=== PATIENT | female | born 1945 | race Caucasian/White ===

== ENCOUNTER 2018-07-24 10:19 | Outpatient (CLI) | payer MEDICARE, SELFPAY ==
[2018-07-24 11:35] LABS: Anion Gap 7.5 mmol/L (3-11); BUN 10 mg/dL (7-18); CO2 30.5 mmol/L (21.0-32.0); CREATININE 0.65 mg/dL (0.55-1.02); Calcium 9.4 mg/dL (8.5-10.1); Chloride 103 mmol/L (98-107); Glucose 94 mg/dL (70-100); Potassium 4.8 mmol/L (3.5-5.1); Sodium 141 mmol/L (136-145)
== END 2018-07-24 10:39 ==
PROVIDERS: PCP Family Medicine; Visit Provider Family Medicine
DX: E03.9 Hypothyroidism, unspecified (principal)
CPT/HCPCS: 36415; 80048; 84443

== ENCOUNTER 2018-08-15 01:25 | Outpatient (CLI) | payer MEDICARE, SELFPAY ==
--- NOTE | 2018-08-15 11:00 | DI.MAMMO_ITS ---
SYMPTOM/DIAGNOSIS: BREAST CANCER SCREENING Z12.31 MAMMOGRAM: Mammograms were interpreted according to the usual protocol including computer analysis with CAD system, tomosynthesis and C view imaging. Comparison with prior examinations. Breast density B. No suspicious masses or microcalcifications are seen. There is no definite evidence of malignancy. IMPRESSION: Category 1 - B. Negative mammogram. Routine screening is recommended. SA ASSESSMENT OF FINDINGS: Negative. Category 1. Patient will receive a letter notifying them of these results. BI-RADS category B. There are scattered areas of fibroglandular density.
== END 2018-08-15 01:45 ==
PROVIDERS: PCP Family Medicine; Visit Provider Family Medicine
DX: Z12.31 Encounter for screening mammogram for malignant neoplasm of breast (principal)
CPT/HCPCS: 77063; 77067

== ENCOUNTER 2019-08-13 03:08 | Outpatient (CLI) | payer MEDICARE, SELFPAY ==
[2019-08-13 11:11] LABS: Calculated LDL 124 mg/dL (<100); Cholesterol 211 mg/dL (<200); HDL Cholesterol 78 mg/dL (40-60); Triglyceride 46 mg/dL (<150)
== END 2019-08-13 03:28 ==
PROVIDERS: PCP Family Medicine; Visit Provider Nurse Practitioner
DX: E78.2 Mixed hyperlipidemia (principal)
CPT/HCPCS: 36415; 80061

== ENCOUNTER 2019-10-22 00:40 | Outpatient (CLI) | payer MEDICARE, SELFPAY ==
--- NOTE | 2019-10-22 11:54 | DI.MAMMO_ITS ---
EXAM: MG MAMMO SCREENING CLINICAL HISTORY: screening,Z12.39 TECHNIQUE: Bilateral full field digital CC and MLO mammographic images were obtained with 3D tomosyn thesis and utilizing computer aided detection (CAD). COMPARISON: Available for comparison. FINDINGS: Masses/Architectural Distortion: None seen. Microcalcifications: No suspicious pleomorphic-type are seen. Skin Thickening/Nipple Retraction: None. IMPRESSION: 1. No significant interval change with no specific features of malignancy noted. 2. Unless there is more urgent need, screening mammography is recommended, as per [employer] guidelines. BI-RADS Category 1 - Negative Breast Density - Category B - Scattered areas of fibroglandular density A negative radiographic report should not delay biopsy if a dominant or clinically suspicious mass is present. Up to ten percent of cancers are not identified on mammography. A negative report may reinforce clinical impression. Adenosis and dense breasts may obscure an underlying neoplasm. False positive reports average 6 to 10%. Patient will receive a letter notifying them of these results.
== END 2019-10-22 01:00 ==
PROVIDERS: PCP Family Medicine; Visit Provider Nurse Practitioner
DX: Z12.31 Encounter for screening mammogram for malignant neoplasm of breast (principal)
CPT/HCPCS: 77063; 77067

== ENCOUNTER → 2019-11-21 09:52 | Outpatient (BNVA) | payer MEDICARE, SELFPAY | PROVIDERS: PCP Family Medicine; Referring Provider Family Medicine; Visit Provider Surgery | DX: Z12.11 Encounter for screening for malignant neoplasm of colon (principal); Z86.010 Personal history of colon polyps; K57.30 Diverticulosis of large intestine without perforation or abscess without bleeding; Z90.710 Acquired absence of both cervix and uterus; C44.90 Unspecified malignant neoplasm of skin, unspecified | CPT/HCPCS: 99202 ==

== ENCOUNTER 2019-12-18 07:19 | Day surgery (SDC) | payer MEDICARE, SELFPAY ==
[2019-12-18 07:32] VITALS: BP 135/84; PULSE 85; RESP 18; TEMP 36.4; O2SAT 96
[2019-12-18] MEDS: Lactated Ringers 1,000 ML 100 ML IV (07:50)
--- NOTE | 2019-12-18 08:45 | W.COLOREPORT ---
Date of service: 12/18/19 Time of Service: 08:45 Colonoscopy Report Date of procedure: 12/18/19 Pre-op diagnosis general: adenomatous polyps/diverticular dx Post-op diagnosis procedure note: other (incomplete CE. ) Procedure: flex sig Surgeon: Elyssa Rangel Anesthesia proc note operative: MAC Estimated blood loss (mL): 0 Pathology: none sent Complications: Other Disposition: same day Prep: Miralax/Dulcolax Procedure Description: After informed consent was obtained the patient was taken to the procedure room and placed in a left decubitous position. Monitors were applied and a time out was done. The patients name, date of , procedure, allergies to medications and metal in their body was reviewed. The patient was then sedated. Once sedated and comfortable a rectal exam was done. External exam was normal. Internal exam revealed a poor sphincter tone and no palpable masses. The scope was then introduced and retrofelexed. NO internal hemorrhoids were identified. The pt could not hold any air. She has multiple small to moderate diverticuli noted in the sigmoid colon. There is no signs of active bleeding or infection. Could not pass the scope past 30 cm. We tried multiple different repositionings but we are unable to pass the scope. Patient complicated by the procedure without being able to hold the air. Her tissues are extremely lacking have poor tone. The prep was adequate. Because of the incomplete colonoscopy patient should have a barium enema for completeness the scope was removed and the patient was woken up and taken back to Same day surgery in stable condition. The patient tolerated the procedure well and there were no immediate complications. Follow up: The patient should not repeat years unless they develop changes in bowel habits or other new gastrointestinal complaints.
--- NOTE | 2019-12-18 09:26 | W.PM.DSUDISC ---
Discharge Plan Disposition Patient Disposition: HOME Condition: Good Discharge Details Reason For Visit: incomplete colonscopcy Attending Provider: Elyssa Rangel Primary Care Provider: Nathalie Lora Home Meds and New Rx's Prescriptions: Continued loratadine 10 mg tablet 10 mg PO DAILY Qty: 30 RF: 0 Daily Vitamin with Iron and CA 1 EACH tablet 1 ea PO DAILY RF: 0 cod liver oil 1 EACH capsule 1 ea PO DAILY RF: 0 glucosamine [id number] 1 EACH tablet 1 ea PO DAILY RF: 0 levothyroxine 25 mcg tablet 25 mcg PO DAILY Qty: 90 RF: 4 Discontinued polyethylene glycol 3350 17 gram/dose powder 238 g PO ONCE Qty: 238 RF: 0 bisacodyl [Dulcolax (bisacodyl)] 5 mg tablet,delayed release (DR/EC) 5 mg PO ONCE Qty: 4 RF: 0 No Action peg 3350-electrolytes [Gavilyte-C] 240-22.72-6.72 -5.84 gram recon soln 240 ml PO Q10M Qty: 4000 RF: 0 Discharge Instructions Additional Instructions: Findings:diverticular dx incomplete CE Follow up: barium enema on: 12/29. Need to at the hospital at 8:45 am. you will need to repeat the bowel prep the day before- my office will contact you with the prep instructions. Please call if you develop: fevers >101.5 Nausea or Vomiting Abdominal pain that is not transient DAY SURGERY UNIT POST COLONOSCOPY INSTRUCTIONS 1. Because there will be medication in your system for the next 24 hours, you may feel a little sleepy. Your coordination will be affected. Therefore: a. Do not drive or operate dangerous equipment for 24 hours. b. Do not drink alcohol beverages for 24 hours (not even beer). c. Plan to go home and rest for the day. 2. Generally there are no restrictions on your activity after a day or so has gone by, but you may feel a bit fatigued for a few days. 3 After you arrive home you may have a light meal and return to a normal diet as you can tolerate it without feeling sick to your stomach. 4. After surgery, you may feel pain or discomfort. This should be only transient, but if it persists please contact your doctor. 5. If there are any questions regarding the findings of your procedure, please feel free to contact your doctor. 6. If you are unable to contact your doctor with a problem, contact the hospital at [phone]. 7. Continue all your regular medications unless directed otherwise. I understand the above instructions and have no questions. Signature of Patient or Responsible Adult Escort Date/Time Name of Responsible Adult Escort Signature of Nurse Date/Time Stand Alone Forms: Colonoscopy Post Instructions, Segundo Delgado (DSU) Discharge Orders Discharge Orders: Discharge Order (Routine); Ordered 12/18/19 Ordered By: Elyssa Rangel DS: Diagnosis Discharge Diagnosis (1) Tubular adenoma: Status: Acute (2) Diverticulosis of colon without diverticulitis: Status: Acute
[2019-12-18 10:10] VITALS: BP 119/79; PULSE 68; RESP 18; TEMP 36.3; O2SAT 98
== END 2019-12-18 10:58 | disposition home or self-care (01) ==
PROVIDERS: PCP Family Medicine; Visit Provider Surgery
PROC: 0DJD8ZZ Inspection of Lower Intestinal Tract, Via Natural or Artificial Opening Endoscopic (ICD-10-PCS; CPT 45378; principal; 2019-12-18 08:15)
DX: Z12.11 Encounter for screening for malignant neoplasm of colon (principal); Z86.010 Personal history of colon polyps; K57.30 Diverticulosis of large intestine without perforation or abscess without bleeding
CPT/HCPCS: G0121; J2001

== ENCOUNTER 2019-12-30 01:16 | Outpatient (CLI) | payer MEDICARE, SELFPAY ==
--- NOTE | 2019-12-30 | DI.RAD_ITS ---
EXAM: RF BARIUM ENEMA CLINICAL HISTORY: hxof adenomatous polyps/incomplete colonsoscopy COMPARISON: No exams were available for comparison TECHNIQUE: 2D and realtime digital imaging was performed. CONTRAST MATERIAL: Barium contrast was administered. FINDINGS: The sub arc operator view of the abdomen shows a normal bowel gas pattern. Patient had difficulty retaining the barium. A full column examination was performed. There is extensive diverticulosis seen from the s plenic flexure through the sigmoid region. The sigmoid area is not optimally distended. There is no gross evidence of a mass. There is no stricture. The appendix appears normal. There is no mucosal ulceration. IMPRESSION: Somewhat limited exam due to the patient's difficulty in retaining barium. Diverticulosis is noted.
== END 2019-12-30 01:36 ==
PROVIDERS: PCP Family Medicine; Visit Provider Surgery
DX: K57.30 Diverticulosis of large intestine without perforation or abscess without bleeding (principal); Z86.010 Personal history of colon polyps
CPT/HCPCS: 74270

== ENCOUNTER 2020-07-13 02:04 | Outpatient (CLI) | payer MEDICARE, SELFPAY ==
[2020-07-14 16:09] LABS: COVID-19 RT-PCR UVMMC Result Positive (Negative)
== END 2020-07-13 02:05 | disposition home or self-care (01) ==
LOC: LBO 02:04
PROVIDERS: PCP Family Medicine; Visit Provider Family Medicine
DX: Z20.822 Contact with and (suspected) exposure to COVID-19 (principal)
CPT/HCPCS: U0003; U0005

== ENCOUNTER 2020-07-16 04:43 | Outpatient (CLI) | payer MEDICARE, SELFPAY ==
[2020-07-16 10:40] VITALS: BP 153/90; PULSE 78; RESP 20; TEMP 36.9; O2SAT 96
[2020-07-16] MEDS: Normal Saline Flush 10 ML SYR IVP (11:00)
[2020-07-16] MEDS: Normal Saline 500 ML 30 ML IV (11:00)
[2020-07-16 11:10] VITALS: BP 151/88; PULSE 72; RESP 20; TEMP 36.9; O2SAT 95
[2020-07-16 11:25] VITALS: BP 135/84; PULSE 72; RESP 16; TEMP 36.9; O2SAT 96
[2020-07-16 11:55] VITALS: BP 147/87; PULSE 69; RESP 18; TEMP 36.9; O2SAT 96
[2020-07-16 12:25] VITALS: BP 155/92; PULSE 68; RESP 16; TEMP 36.6; O2SAT 96
== END 2020-07-16 04:44 | disposition home or self-care (01) ==
PROVIDERS: PCP Family Medicine; Visit Provider Family Medicine
DX: U07.1 COVID-19 (principal)
CPT/HCPCS: 96365

== ENCOUNTER → 2020-08-02 09:27 | Outpatient (BNVA) | payer MEDICARE, SELFPAY | PROVIDERS: PCP Family Medicine; Referring Provider Family Medicine; Visit Provider Student in an Organized Health Care Education/Training Program | DX: G56.21 Lesion of ulnar nerve, right upper limb (principal) | CPT/HCPCS: 99213 ==

== ENCOUNTER → 2020-08-10 12:08 | Outpatient (BNVA) | payer MEDICARE, SELFPAY | PROVIDERS: PCP Family Medicine; Referring Provider Student in an Organized Health Care Education/Training Program; Visit Provider Psychiatry & Neurology Neurology | DX: G56.01 Carpal tunnel syndrome, right upper limb (principal) | CPT/HCPCS: 95908; 99213 ==

== ENCOUNTER 2020-08-18 11:10 | Outpatient (CLI) | payer MEDICARE, SELFPAY ==
[2020-08-18 13:01] LABS: ALT 43 U/L (14-59); AST 21 U/L (15-37); Albumin 3.7 g/dL (3.4-5.0); Alkaline Phosphatase 84 U/L (46-116); Anion Gap 7.5 mmol/L (3-11); BUN 14 mg/dL (7-18); Bilirubin, Total 0.5 mg/dL (0.2-1.0); CO2 29.5 mmol/L (21.0-32.0); CREATININE 0.7 mg/dL (0.55-1.02); Calcium 9.3 mg/dL (8.5-10.1); Chloride 103 mmol/L (98-107); Glucose 100 mg/dL (74-106); Potassium 4.3 mmol/L (3.5-5.1); Sodium 140 mmol/L (136-145); TSH 2.85 uIU/mL (0.36-3.74); Total Protein 7.2 g/dL (6.4-8.2)
[2020-08-19 04:45] LABS: Vitamin D 25 Total 41.7 ng/ml (30-100)
== END 2020-08-18 11:11 | disposition home or self-care (01) ==
LOC: LOS 11:11
PROVIDERS: PCP Family Medicine; Visit Provider Family Medicine
DX: R53.83 Other fatigue (principal); E78.5 Hyperlipidemia, unspecified; E55.9 Vitamin D deficiency, unspecified
CPT/HCPCS: 36415; 80053; 82306; 84443

== ENCOUNTER → 2020-08-26 10:55 | Outpatient (BNVA) | payer MEDICARE, SELFPAY | PROVIDERS: PCP Family Medicine; Referring Provider Family Medicine; Visit Provider Student in an Organized Health Care Education/Training Program | DX: G56.01 Carpal tunnel syndrome, right upper limb (principal); M65.311 Trigger thumb, right thumb | CPT/HCPCS: 99213 ==

== ENCOUNTER 2020-08-31 10:23 | Day surgery (SDC) | payer MEDICARE, SELFPAY ==
[2020-08-31 10:33] VITALS: BP 146/91; PULSE 72; RESP 16; TEMP 36.5; O2SAT 98
[2020-08-31] MEDS: Lactated Ringers 1,000 ML 80 ML IV ×2 (10:55→13:44)
--- NOTE | 2020-08-31 13:05 | PDOC.DSDIS_ITS ---
Discharge Plan Disposition Patient Disposition: HOME Condition: Good Discharge Details Reason For Visit: Right trigger thumb; right carpal tunnel syndrome Attending Provider: Pierre Low Primary Care Provider: Nathalie Lora Home Meds and New Rx's Prescriptions: New hydrocodone-acetaminophen 5-325 mg tablet 1 tab PO Q6H PRN (Reason: severe pain) Qty: 3 RF: 0 Continued cholecalciferol (vitamin D3) 25 mcg (1,000 unit) capsule 25 mcg PO DAILY RF: 0 Daily Vitamin with Iron and CA 1 EACH tablet 1 ea PO DAILY RF: 0 cod liver oil 1 EACH capsule 1 ea PO DAILY RF: 0 glucosamine [id number] 1 EACH tablet 1 ea PO DAILY RF: 0 levothyroxine 25 mcg tablet 25 mcg PO DAILY Qty: 90 RF: 4 Discharge Instructions Stand Alone Forms: [place] C. Tunnel Release, [place] T. Finger Release Referrals: Pierre Low MD [ [facility] STAFF PHYSICIAN] - Activity:: Elevate Remove Dressings/Wound Care:: 72 hours Shower/Bathe:: 72 hours Diet:: As Tolerated Discharge Orders Discharge Orders: Discharge Order (Routine); Ordered 08/31/20 Ordered By: Elyssa Calix DS: Diagnosis Discharge Diagnosis (1) Carpal tunnel syndrome of right wrist: Status: Acute (2) Trigger finger of right thumb: Status: Acute
[2020-08-31] MEDS: ceFAZolin 2 GM/50 ML BAG IVPB (13:17)
[2020-08-31] MEDS: Sodium Bicarbonate 50 MEQ/50 ML VIAL (13:34)
[2020-08-31 14:25] VITALS: BP 135/84; PULSE 78; RESP 16; TEMP 36.2; O2SAT 96
--- NOTE | 2020-08-31 21:49 | ROE_ITS ---
Date of service: 08/31/20 Time of Service: 13:50 Operative Note Operative Note DATE OF PROCEDURE: 08/31/20 PRE-OP DIAGNOSIS: Right Carpal Tunnel Syndrome, Right Trigger Thumb POST-OP DIAGNOSIS: same PROCEDURE: Right Endoscopic Carpal Tunnel Release, Right Trigger Thumb Release SURGEON: Pierre Low ANESTHESIA TYPE: General:No Airway Refer to Anesthesia Record ESTIMATED BLOOD LOSS: 0 PATHOLOGY: none sent TOURNIQUET TIME: 14 COMPLICATIONS: None Patient was transported to: same day Patient's condition: stable Indications: I have seen Libby in clinic for symptoms of carpal tunnel syndrome as well as a trigger thumb. The numbness, tingling, restricted motion, and pain limited function. Clinical exam findings with nerve conduction tests confirmed the diagnosis of carpal tunnel syndrome. Nonoperative measures such as bracing, time, activity modifications had been tried but disability and pain persisted. I discussed carpal tunnel release with the patient. I reviewed the risks of the procedure to include, but not limited to, bleeding, infection, pain, stiffness, incomplete release, damage to nerves or vessels, persistent numbness, recurrence. Despite these risks, the patient elected to proceed. Findings: There was tightened carpal tunnel. This was dilated and released successfully with the endoscopic with increased space within the tunnel. The antebrachial fascia was released proximally freeing the median nerve at the wrist. Procedure Description: Libby was greeted in the preoperative holding area where the correct side was identified and marked. The consent was reviewed with the patient and signed. The history and physical was updated. All questions were answered. Libby was taken back to the operating room. The patient was placed into the supine position on the operating room table with the right arm on an arm board. A nonsterile tourniquet was placed high onto the arm. All bony prominences were well padded. Prophylactic antibiotics in the form of Cefazolin were administered. The right arm was then prepped with Chloraprep and draped in a standard fashion with stockinette and extremity drape. A timeout to confirm correct identity, side and site, procedure, allergies, anesthesia, and medical concerns was performed. The surgical site was marked in the volar wrist creases in line with the radial border of the fourth ray as well as over the A1 isidoro of the thumb. This area was anesthetized with 1% Lidocaine with Epinephrine buffered with Sodium Bicarbonate. The limb was then exsanguinated with an Esmarch. We started with the trigger thumb. A 1 cm incision was made longitudinally overlying the flexor tendon at the A1 isidoro. This was incised sharply. Deeper structures were bluntly dissected with a tenotomy scissor. Soft tissues including neurovascular bundle were retracted medially and laterally to expose the flexor tendon. The A1 isidoro was identified. Using a tenotomy scissor, the isidoro was released. This was checked to make sure there is no other bands or points of constriction. Using hemostat, the tendon was removed from the wound and inspected and showed some minor fraying. This was debrided. The wound was then thoroughly irrigated. The wound was closed with a single 4-0 nylon. Attention was then turned to the wrist where the skin was incised with a 15 blade, approximately 1cm. The skin only was cut and the deeper tissue was dissected bluntly with a tenotomy scissor, avoiding passing nerve and venous structures. The fascia was penetrated and opened bluntly. A two-prong skin hook was placed under this proximal fascial edge. A series of hamate finders were used to identify and dilate the carpal tunnel. Synovial elevator was used to free synovial attachments to the underside of the transverse carpal ligament. My thumb was kept in the palm to rico the distal extent of the carpal tunnel and correctly position the hand. The Microaire endoscope was inserted without difficulty and without resistance. Excellent visualization showed horizontally running fibers of the transverse carpal ligament (TCL). The distal extent of the TCL was visualized and the end of the scope palpated with the thumb. The blade was elevated and withdrawn from distal to proximal. The TCL was split into two flaps. The endoscope was reinserted to confirm complete release and any remnant ligament was incised. The scope was withdrawn and the proximal aspect of the carpal tunnel was grossly inspected and appeared release with the median nerve visible. The antebrachial fascia at the level of the wrist was then freed from the o verlying skin and then the underlying median nerve with blunt dissection. This was transected longitudinally for about 3cm proximal to the wrist incision. The wound was then irrigated with easy flow of irrigant distally and proximally. The incision was closed with a single 4-0 Nylon suture. The wounds were dressed with Xeroform, Gauze, Kerlix and Abhi. The tourniquet was deflated with the init ial dressing and held with some pressure. Blood flow returned easily to all digits with capillary refill less than 2 seconds. The patient tolerated the procedure well and was returned to the Same Day Surgery area in a stable condition suffering no known complication.
== END 2020-08-31 14:46 | disposition home or self-care (01) ==
PROVIDERS: PCP Family Medicine; Visit Provider Student in an Organized Health Care Education/Training Program
PROC: 01N54ZZ Release Median Nerve, Percutaneous Endoscopic Approach (ICD-10-PCS; CPT 29848; principal; 2020-08-31 13:45)
PROC: (CPT 26055; 2020-08-31 13:45)
DX: G56.01 Carpal tunnel syndrome, right upper limb (principal); M65.311 Trigger thumb, right thumb
CPT/HCPCS: 26055; 29848; J0690; J2001

== ENCOUNTER → 2020-09-10 10:21 | Outpatient (BNVA) | payer MEDICARE, SELFPAY | PROVIDERS: PCP Family Medicine; Referring Provider Family Medicine; Visit Provider Physician Assistant Surgical | DX: Z47.89 Encounter for other orthopedic aftercare (principal); G56.01 Carpal tunnel syndrome, right upper limb; M65.311 Trigger thumb, right thumb ==

== ENCOUNTER 2020-10-22 04:05 | Outpatient (CLI) | payer MEDICARE, SELFPAY ==
--- NOTE | 2020-10-22 06:50 | DI.MAMMO_ITS ---
Exam(s) MAMMO SCREENING EXAM: MAMMO SCREENING CLINICAL HISTORY: screening,Z12.39 TECHNIQUE: Mammograms were interpreted according to the usual protocol including computer analysis w [employer] CAD system, tomosynthesis and C-view imaging. COMPARISON: FINDINGS: The breasts are of moderate density with fairly symmetrical distribution of fibroglandular tissue. N o dominant mass or clumped microcalcification identified in either breast. The current examination i s compared with previous examinations including October 2019 and there has been no gross interval change in appearance comparison with the prior studies. Note is again made of bilateral benign appearing ro d-like macrocalcifications. IMPRESSION: No specific evidence of malignancy at this time. Routine screening examinations are suggested at yea rly intervals due to the strong family history of breast carcinoma. BI-RADS Category 1 - Negative Breast Density - Category B - Scattered areas of fibroglandular density
== END 2020-10-22 04:25 ==
PROVIDERS: PCP Family Medicine; Visit Provider Family Medicine
DX: Z12.31 Encounter for screening mammogram for malignant neoplasm of breast (principal)
CPT/HCPCS: 77063; 77067

== ENCOUNTER 2021-08-12 04:00 | Outpatient (CLI) | payer OTHER, SELFPAY ==
[2021-08-12 09:32] LABS: Hemoglobin A1C 5.6 % (<5.7)
[2021-08-12 10:26] LABS: Calculated LDL 150 mg/dL (<100); Cholesterol 254 mg/dL (<200); HDL Cholesterol 97 mg/dL (40-60); TSH 3.33 uIU/mL (0.36-3.74); Triglyceride 37 mg/dL (<150)
== END 2021-08-12 04:01 | disposition home or self-care (01) ==
LOC: LBO 04:01
PROVIDERS: PCP Nurse Practitioner Family; Visit Provider Nurse Practitioner Family
DX: Z13.1 Encounter for screening for diabetes mellitus (principal); E78.5 Hyperlipidemia, unspecified; E03.9 Hypothyroidism, unspecified
CPT/HCPCS: 80061; 83036; 84443

== ENCOUNTER 2021-10-24 02:13 | Outpatient (CLI) | payer OTHER, SELFPAY ==
--- NOTE | 2021-10-24 09:43 | DI.MAMMO_ITS ---
Exam(s) MAMMO SCREENING EXAM: MAMMO SCREENING CLINICAL HISTORY: screening, Z12.39 TECHNIQUE: Mammograms were interpreted according to the usual protocol including computer analysis w [employer] CAD system, tomosynthesis and C-view imaging. COMPARISON: 2011 through 2020 FINDINGS: The breasts are composed of scattered fibroglandular densities, Breast Density category B. No suspicious masses or suspicious microcalcifications are seen. Benign calcifications bilateral No skin thickening or abnormal axillary lymph nodes are seen. There has been no significant change from prior exams. IMPRESSION: BI-RADS Category 1, Negative mammogram Yearly screening mammography is recommended. Breast Density - Category B, scattered fibroglandular densities. A negative radiographic report should not delay biopsy if a dominant or clinically suspicious mass is present. Up to ten percent of cancers are not identified on mammography. A negative report may reinforce clinical impression. Adenosis and dense breasts may obscure an underlying neoplasm. False positive reports average 6 to 10%. Patient will receive a letter notifying them of these results.
== END 2021-10-24 02:33 ==
PROVIDERS: PCP Nurse Practitioner Family; Visit Provider Nurse Practitioner Family
DX: Z12.31 Encounter for screening mammogram for malignant neoplasm of breast (principal)
CPT/HCPCS: 77063; 77067

== ENCOUNTER 2022-06-12 12:30 | Inpatient (IN) | payer OTHER, SELFPAY ==
[2022-06-12] VITALS (25 sets, daily range): BP systolic 79–154; BP diastolic 46–90; PULSE 54–82; RESP 12–33; TEMP 35.6–37.5; O2SAT 93–98
--- NOTE | 2022-06-12 12:30 | RT.EKG_ITS ---
APPROVED REPORT Exam: Resting ECG Reason for Exam: chest pain Patient Location: E HR:70 bpm ECG Measurements Heart Rate 70 AXIS ME 178 P 47 QRSd 75 QRS 58 QT 393 T 26 QTc 426 Conclusion Sinus rhythm...normal P axis, V-rate 60- 99 Probable left atrial enlargement...P >50mS, <-0.10mV V1. Sinus. Normal axis. No STEMI. I have reviewed and interpreted ECG and agree with software generated interpretation.
--- NOTE | 2022-06-12 12:30 | DI.RAD_ITS ---
Exam(s) XR PORTABLE CHEST AP EXAM: XR PORTABLE CHEST AP CLINICAL HISTORY: CP TECHNIQUE: 2D digital imaging was performed. COMPARISON: No exams were available for comparison FINDINGS: LUNGS: Clear. No pleural abnormality seen. HEART: Normal size. AORTA: Normal diameter. BONES: Unremarkable for age. Soft tissues: Unremarkable. IMPRESSION: No acute findings. DATA REPOSITORY: RADIATION DOSE DELIVERED:
[2022-06-12] MEDS: nitroGLYcerin 0.4 MG TAB SL ×2 (12:44→12:53)
[2022-06-12] MEDS: Mylanta Suspension 30 ML CUP PO (12:44)
[2022-06-12] MEDS: Aspirin 81 MG CHEW 324 MG CH (12:44)
[2022-06-12 12:53] LABS: Abs Immature Grans 0.04 10^3/uL (0.0-0.06); Absolute Eosinophil Count 0.18 10^3/uL (0.0-0.7); Absolute Lymphocyte Count 2.92 10^3/uL (1.2-3.4); Absolute Monocyte Count 0.63 10^3/uL (0.1-0.8); Absolute Neutrophil Count 5.14 10^3/uL (1.2-6.7); Basophils % 1.1; HCT 40.4 % (36.0-46.0); HGB 13.2 g/dL (11.2-15.7); Immature Grans % 0.4; Lymphocytes % 32.4; MCH 30.8 pg (27.0-33.0); MCHC 32.7 % (32.0-36.0); MCV 94 fL (80-95); MPV 11.2 fL (8.0-11.0); Neutrophils % 57.1; Platelet Count 352 10^3/uL (130-400); RBC 4.28 10^6/uL (3.93-5.22); RDW 13.4 % (11.7-14.6); RDW-SD 46.2 fL; WBC 9.01 10^3/uL (4.4-10.8)
--- NOTE | 2022-06-12 12:58 | ED.GENADUL_ITS ---
Discharge Plan Disposition Patient Disposition: Admit to [facility] Condition: Poor Condition: Good Discharge Details Chief Complaint: Chest Pain Clinical Impression: SBO (small bowel obstruction) Admit Date/Time: 06/12/22 14:18 Admit Provider: Akil Finch Attending Provider: Akil Finch Primary Care Provider: Lonny Nunez ED Provider: Fabiana Call Discharge Instructions Activity:: Activity as Tolerated Equipment/Supplies:: No Equipment Needed Diet:: start with low-residual; no raw vegetables, light foods; and slowly advance Discharge Orders Discharge Orders: Discharge Order (Routine); Ordered 06/16/22 Ordered By: Sandeep Esquivel Discharge Data Discharge Date/Time-TO BE ENTERED AT DEPARTURE: 06/12/22 15:09 Medical Decision Making Patient is a pleasant 76-year-old female presenting today with chief complaint of chest pain that began 1 hour prior to arrival. Has never had pain like this historically. States the pain has been fairly consistent and indicates area under the left breast this area of maximal discomfort. States that initially she felt this might of been indigestion. Was cooking breakfast at the time that she had the discomfort. Tried hydrogen peroxide and water and states that this induced emesis x3. Is currently endorsing some nausea. Pain does not radiate into her back. Denies any personal or familial history of cardiac illness. Denies feeling short of breath. No recent fevers or chills. Denies any cough. Denies syncopal episode, lightheadedness. On exam, patient appears acutely ill. She is diaphoretic, actively vomiting. No respiratory distress. Lungs are clear. Oxygenating well. Initial temp is low but she is diaphoretic and this was done via temporal scan as she is actively vomiting. Normal cardiac auscultation. Abdomen concerning for eepigastric pain. No LE edema, 2+ distal pulses in all extremities. Concerned at this time for ACS. She is not having radiating back pain suggestive of dissection and her pulses are intact. Also considered GI cause of her symptoms. Will give sublingual nitro, antiemetic. ECG obtained, no acute ischemic findings. Patient became hypotensive after 2 doses of sublingual nitroglycerin. We will begin on fluids. Patient reports that her pain is increasing. With hypotension, the morphine initially ordered was felt, this is uptrending. In the interim, Dr. Foster myself performed a bedside ultrasound did not see any significant hypokinesis of the cardiac silhouette. No pericardial effusion. No significant dilation noted of the aorta, After another episode of emesis, patient reports that her pain is somewhat improved. Will give Protonix as the patient did have emesis immediately after taking her Mylanta. Initial troponin WNL. She continues to have waves of signficant discomfort and nausea. Will move forward with CTA of chest/abd/pelvis. concerned for obstruction. Also, while less likely, would like to evaluate the aorta. Contated by radiologist. concerned for SBO. Discusseed with patient. Will place NG tube and continue to treat pain. Will consult with surgery team. Consulted with [facility] general surgery team. He agrees to admission. Patient COVID negative. Now resting, daughter at bedside. Stable condition. HPI General Date/Time Provider Initiated Documentation: 06/12/22 12:37 . Limitations to Documentation: no limitations . Information obtained by: patient and RN notes reviewed . History of Present Illness 76 year old F presents to the emergency department with the chief complaint of vomiting, chest/upper abdominal pain, described as severe, Quality is described as stabbing and aching, and is localized to the chest and abdomen. Patient reports no radiation. Patient started experiencing this hour(s) (1) and it has been constant. No relieving factors improve symptom(s), No exacerbating factors reported . Patient notes chest pain, diaphoresis, loss of appetite and nausea/vomiting; denies cough, fever/chills, headaches, rash and shortness of breath. Patient did receive the following treatments prior to arrival, none Related Data Home Medications Medication Instructions Recorded Confirmed [id number]-minerals 1 ea PO DAILY 01/13/13 06/12/22 (Daily Vitamin with Iron and CA tablet) cod liver oil 1 ea PO DAILY 07/14/13 06/12/22 glucosamine HCl 500 mg-msm 83 1 ea PO DAILY 07/14/13 06/12/22 mg-chondroitin 400 mg tablet cholecalciferol (vitamin D3) 25 25 mcg PO DAILY 08/18/20 06/12/22 mcg (1,000 unit) capsule levothyroxine 25 mcg tablet 25 mcg PO DAILY #90 tab-caps 05/08/22 06/12/22 Previous Rx's Medication Instructions Recorded levothyroxine 25 mcg tablet 25 mcg PO DAILY #90 tab-caps 05/08/22 Allergies Allergy/AdvReac Type Severity Reaction Status Date / Time Sulfa (Sulfonamide Allergy Severe SKIN RASH Verified 06/12/22 14:50 Antibiotics) General Stated Complaint: Chest Pain MICHAELA: 2 Review of Systems Constitutional Constitutional: Reports as per HPI, Denies chills, Denies fever(s) and Denies headache(s) ENT Ears, Nose, Mouth, and Throat: Denies dizziness and Denies headache(s) Cardiovascular Cardiovascular: Reports as per HPI, Denies dyspnea and Denies dyspnea on exertion Respiratory Respiratory: Reports as per HPI, Denies chest congestion, Denies cough, Denies dyspnea and Denies dyspnea on exertion Gastrointestinal Gastrointestinal: Reports as per HPI and Denies diarrhea Musculoskeletal Musculoskeletal: Reports as per HPI and Denies back pain Integumentary/Breasts Skin/Breast: Reports as per HPI and Denies rash Neurologic Neurologic: Reports as per HPI, Denies dizziness and Denies headache(s) PFSH All Active Problems (Updated 06/26/22 @ 08:41 by TAWANA Hernandez) SBO (small bowel obstruction) (Acute) Diverticulosis of colon without diverticulitis (Acute) FH: breast cancer in first degree relative (Acute) 2 sisters Hyperlipidemia (Acute 05/01/12) diet/exci controlled Hypothyroidism (Acute) Polyp of colon (Acute) Tubular adenoma (Acute) 08/14/11 DR. NUÑEZ; 9 TUBULAR ADENOMAS 11/30/14; Dr. Espino Carpal tunnel syndrome of right wrist (Acute) Trigger finger of right thumb (Acute) Repaired with carpel tunnel surgery. Medical History Abnormal colonoscopy pt. reports polyps History of COVID-19 07/13/20 Hx of ectopic Hx of melanoma of skin Hypothyroidism Malignant neoplasm of skin Melanoma: back ()/fup yearly Hx squamous cell carcinoma: right arm 2008 Surgical History excision of melanoma Hx of surgical amputation of finger L ring finger ground off Hysterectomy, Laproscopic (~1995) Rotator Cuff Repair (~2006) RIGHT Status post laparoscopic hysterectomy Status post rotator cuff repair Family History Mother , AGE 88 Diabetes Essential hypertension Asthma Father , AGE 66 Diabetes Renal cell cancer Sister , AGE 51 Breast cancer Sister Diabetes Essential hypertension Hyperlipidemia Asthma Breast cancer Sister Hyperlipidemia Skin cancer Sister Hyperlipidemia Breast cancer Diabetes Hypertension Sister Hyperlipidemia Asthma Hypertension Brother Diabetes Hyperlipidemia Prostate cancer Hypertension Brother Diabetes Hyperlipidemia Prostate cancer Hypertension Alcohol abuse Son Hypertension Daughter Asthma Hypertension Daughter Hypertension Sister No problems noted. Social History Smoking/Tobacco Use Status: Former Tobacco Use tobacco type: cigarettes Quit Date: 06/04/90 Tobacco: How many years used: 12 Second Hand Exposure: Yes Smoking risk assessment performed?: Yes Alcohol Intake: current Alcohol Intake frequency: a few times a week Alcohol type: wine Drug use: Never Substance use type: does not use Details: alcohol: t-2, two drinks Caregiver/Support person: No Household members: children Housing: apartment Do you need help understanding health information?: Never Pets and animals: No Sexually active: No Do you think of yourself as: straight/heterosexual Current gender identity: female What is your relationship status?: How often do you talk on the phone with friends or family?: three or more times per week Do you belong to any clubs or organized social groups?: yes Panel score (0-1 are the most socially isolated patients): 2 Telma/Sabianism: None Special telma needs: No Seatbelt use: sometimes Drive intox or ride w/intox commercial collections driver: No Do you feel safe at home: Yes Exam Const General: cooperative, uncomfortable, well developed, in distress, anxious, diaphoretic and ill appearing acutely Nutritional Appearance: average body habitus and well nourished Orientation: alert, awake and oriented x3 HENMT Head: normal to inspection Ears: hearing grossly normal bilaterally Mouth: moist mucous membranes Chest Chest: normal inspection of the chest, normal palpation of entire chest wall and no crepitus Resp Effort & Inspection: normal respiratory effort, able to speak in complete sentences and no respiratory distress Auscultation: clear to auscultation bilaterally, no rales, no rhonchi and no wheezes Cardio Rate: regular rate Rhythm: regular rhythm Heart Sounds: S1 normal and S2 normal GI Inspection: normal to inspection, no edema and non-distended Palpation: soft, no hepatosplenomegaly, firm, guarding, not rigid and tender in the epigastrum Percussion: normal to percussion Auscultation: normal bowel sounds Back/Spine/Pelvis Back: no CVA tenderness Thoracic/Lumbar Spine: thoracic and lumbar spine normal to inspection Skin General skin exam: no rashes or lesions noted Trauma: no lacerations or abrasions Neuro General: patient alert, patient awake and patient oriented x3 Cognition: normal cognition Speech: speech normal Gait: normal gait Extrem General: normal to inspection, capillary refill normal, no pedal edema, no calf tenderness and normal gait Psych Appearance: grossly normal and well kempt Mental Status: mental status grossly normal Speech and Movement: speech and movement normal Course Vital Signs Vital signs: Vital Signs Pulse 72 06/12/22 12:34 Respiratory Rate 20 06/12/22 12:34 Blood Pressure 151/82 H 06/12/22 12:34 Pulse 72 06/12/22 12:34 Respiratory Rate 18 06/12/22 12:46 Respiratory Effort 06/12/22 12:46 Respiratory Depth Normal 06/12/22 12:46 Respiratory Pattern Normal 06/12/22 12:46 Blood Pressure 151/82 H 06/12/22 12:34 Blood Pressure Position Supine 06/12/22 12:34 Oxygen Delivery Method Room Air 06/12/22 12:34 Oxygen Flow Rate 0 06/12/22 12:34 Pain Level 10 06/12/22 12:53 Lab/Test Results Lab/Test Results: Laboratory Tests Range/Units 06/12/22 12:42 WBC (4.4-10.8) 10^3/uL 9.01 RBC (3.93-5.22) 10^6/uL 4.28 Hgb (11.2-15.7) g/dL 13.2 Hct (36.0-46.0) % 40.4 MCV (80-95) fL 94 MCH (27.0-33.0) pg 30.8 MCHC (32.0-36.0) % 32.7 RDW (11.7-14.6) % 13.4 Plt Count (130-400) 10^3/uL 352 MPV (8.0-11.0) fL 11.2 H Immature Gran % 0.4 Neutrophils % 57.1 Lymphocytes % 32.4 Monocytes % 7.0 Eosinophils % 2.0 Basophils % 1.1 Nucleated RBC % (0.0-0.3) % 0.0 Absolute Neutrophils (1.2-6.7) 10^3/uL 5.14 Absolute Lymphocytes (1.2-3.4) 10^3/uL 2.92 Absolute Monocytes (0.1-0.8) 10^3/uL 0.63 Absolute Eosinophils (0.0-0.7) 10^3/uL 0.18 Absolute Basophils (0.0-0.2) 10^3/uL 0.10 PAWSS Have you Been Recently Intoxicated or Drunk Within the Last 30 days?: No Have you Ever Experienced Previous Episodes of Alcohol Withdrawal?: No Have you ever Experienced Withdrawal Seizures?: No Have you ever Experienced Delirium Tremens(DT)s?: No Have you ever undergone Alcohol Rehabilitation Treatment (i.e, inpt ot outpatient treatment programs)?: No Have you ever Experienced Blackouts?: No Have you ever Combined Alcohol with other Downers within the last 90 days?: No Have you ever Combined Alcohol with any other Substance of Abuse during the last 90 days?: No Result: 0
[2022-06-12] MEDS: MORPHine 4 MG/ML SYR IVP ×2 (13:01→14:57)
[2022-06-12 13:15] LABS: ALT 29 U/L (14-59); AST 27 U/L (15-37); Albumin 3.4 g/dL (3.4-5.0); Alkaline Phosphatase 93 U/L (46-116); BUN 17 mg/dL (7-18); Bilirubin, Total 0.4 mg/dL (0.2-1.0); CREATININE 0.7 mg/dL (0.55-1.02); Calcium 8.7 mg/dL (8.5-10.1); Chloride 102 mmol/L (98-107); Estimated GFR 90.14 (mL/min/1.73m2); Glucose 118 mg/dL (74-106); Lipase 149 U/L (73-393); Potassium 3.7 mmol/L (3.5-5.1); Sodium 140 mmol/L (136-145); Total Protein 7.1 g/dL (6.4-8.2); Troponin I < 50 ng/L (<or=60)
--- NOTE | 2022-06-12 13:21 | DI.CT_ITS ---
Exam(s) CT THORAX ABD/PEL CTA EXAM: CT THORAX ABD/PEL CTA CLINICAL HISTORY: CP, epigastric pain. TECHNIQUE: Imaging Protocol: Axial CT angiography was performed with multi-slice acquisition and mu lti-planar and/or 3D reconstructions. CONTRAST MATERIAL: Intravenous: Omnipaque 350 Contrast volume:100 ml COMPARISON: CR XR PORTABLE CHEST AP from 06/12/2022 FINDINGS: CHEST: Pulmonary Arteries: No evidence of filling defect to suggest pulmonary emboli. Tracheobronchial tree: Patent where visualized. Mediastinum and Shaina: No dominant adenopathy or fluid collection. Pulmonary parenchyma: No consolidation or dominant measurable mass. Dependent changes. Pleura: No effusion or pneumothorax. Heart: The heart is not dilated. No coronary artery calcifications are seen. Aorta: Thoracic aorta non-dilated. Bones: Degenerative disc changes. Tubes, Catheters, and Lines: ABDOMEN: Liver: Normal density. No measurable mass. Portal, Superior Mesenteric, and Splenic Veins: Unremarkable. Gallbladder and Biliary Tract: No radiodense calculus or dilation. Pancreas: Normal density, no abnormal calcifications or inflammatory process. Mild dilatation of the pancreatic duct. Spleen: Normal. Adrenals: No masses seen. Kidneys: Normal size, contour and axis. No radiodense stones or obstructive uropathy. Bilateral para pelvic renal cysts. No masses seen. Abdominal Aorta and branch vessel: Abdominal portion non-dilated. No significant atherosclerotic aury nges. Branch vessels patent. Bowel: Stomach: Unremarkable. Small bowel: Small small diverticulum of the duodenum. Dilatation loo ps proximal to mid jejunum from the upper abdomen through pelvis. Decompressed distal loops of ileum . Apparent transition point in the midline at the level of the umbilicus. Some swirling of the mese ntery in this area. No pneumatosis or wall thickening. Colon: Prominent diverticulosis descending colon. Mild wall thickening and inflammation upper descen ding colon, at the level of the left kidney.. Appendix is unremarkable. Peritoneal Cavity: No ascites or collection Lymph Nodes: Within normal limits. Bones: Degenerative changes. Disc space narrowing at L5-S1. Bilateral L5 pars defects and slight sp ondylolisthesis. Soft Tissues: Small fatty containing inguinal hernias. PELVIS: Bladder: Symmetric distention, no gross wall thickening. Reproductive Organs: Status post hysterectomy. Lymph Nodes: Within normal limits. Bones: Within normal limits. IMPRESSION: 1. No evidence of pulmonary embolism or other acute abnormality in the chest.. 2. Findings consistent with small-bowel obstruction with transition point in the mid abdomen, at the level of the umbilicus. 3. Question of focal diverticulitis versus artifact the lower descending colon. Findings called to Fabiana Call, emergency department provider. RADIATION DOSE DELIVERED: 911.63mGy.cm Total DLP DATA REPOSITORY: All CT scans at this facility are submitted to the National Radiology Data Registry (NRDR) Dose Index Registry (DIR) with the [employer] (ACR). RADIATION OPTIMIZATION: All CT scans at this facility use at least one of these dose optimization te chniques: automated exposure control; mA and/or kV adjustment per patient size (includes targeted exa ms where dose is matched to clinical indication); or iterative reconstruction.
[2022-06-12] MEDS: Pantoprazole 40 MG VIAL IVP (13:40)
[2022-06-12] MEDS: Omnipaque 350 MG/ML 100 ML BTL IJ (13:48)
[2022-06-12] MEDS: Normal Saline - Diluent 50 ML VIAL IJ (13:49)
[2022-06-12] MEDS: Normal Saline Flush 10 ML SYR IVP ×3 (13:49→21:00)
[2022-06-12 14:32] LABS: COVID-19 PCR Negative (Negative); Influenza A PCR Negative (Negative); Influenza B PCR Negative (Negative); RSV PCR Negative (Negative)
[2022-06-12 14:37] LABS: Source Nasopharynx
--- NOTE | 2022-06-12 15:39 | W.PM.HP.N ---
Date of service: 06/12/22 Time of Service: 15:39 Assessment and Plan Assessment and plan (1) Bowel obstruction: Status: Acute Assessment and plan: By history, physical exam, and imaging, I think Libby has an acute small bowel obstruction. The most likely etiology would be adhesive based on her history of hysterectomy. There does appear to be a transition point around the midportion of the small bowel. I do not see any fecalization, ascites, or other worrisome findings. Certainly, however, her pain is a little worrisome. For now, we will try some medications including antiemetics to see if we can get her more comfortable. If that is the case, then we will plan for a Gastrografin challenge tonight to see if we can identify any clear source of obstruction, and potentially offer some therapeutic benefit. I did explain to her that if this fails, then the neck step would be exploration and operative adhesiolysis. History of Present Illness History of Present Illness Chief Complaint: Abdominal pain Narrative: Libby is a 76-year-old woman who came to the emergency department after a cute onset of abdominal pain today. She describes it as stabbing, and radiating across the upper abdomen and mid epigastrium. She denies any exacerbating factors. There is nothing in particular that makes it better. This has been associated with nausea and some vomiting. She has had no relief of her symptoms with that. She denies any fevers. Review of Systems Constitutional Constitutional: Denies body ache(s), Denies difficulty sleeping, Reports fatigue, Denies fever(s), Denies lethargy and Reports poor appetite Eyes Eyes: Reports system reviewed and no additional complaints, except as documented ENT Ears, Nose, Mouth, and Throat: Reports system reviewed and no additional complaints, except as documented Cardiovascular Cardiovascular: Denies chest pain and Denies dyspnea Respiratory Respiratory: Denies chest congestion, Denies cough and Denies dyspnea Gastrointestinal Gastrointestinal: Reports abdominal pain, Denies constipation, Denies heartburn, Reports nausea and Reports vomiting Genitourinary Genitourinary: Reports system reviewed and no additional complaints, except as documented Musculoskeletal Musculoskeletal: Reports back pain, Denies muscle cramps and Denies muscle weakness Neurologic Neurologic: Denies confusion and Denies memory loss Psychiatric Psychiatric: Denies confusion and Denies memory loss Endocrine Endocrine: Reports fatigue Hematologic/Lymphatic Hematologic/Lymphatic: Denies easy bleeding and Denies easy bruising PFSH All Active Problems (Updated 06/12/22 @ 16:06 by Akil Finch MD) Bowel obstruction (Acute) Diverticulosis of colon without diverticulitis (Acute) FH: breast cancer in first degree relative (Acute) 2 sisters Hyperlipidemia (Acute 05/01/12) diet/exci controlled Hypothyroidism (Acute) Polyp of colon (Acute) Tubular adenoma (Acute) 08/14/11 DR. NUÑEZ; 9 TUBULAR ADENOMAS 11/30/14; Dr. Espino Carpal tunnel syndrome of right wrist (Acute) Trigger finger of right thumb (Acute) Repaired with carpel tunnel surgery. Medical History Abnormal colonoscopy pt. reports polyps History of COVID-19 07/13/20 Hx of ectopic Hx of melanoma of skin Hypothyroidism Malignant neoplasm of skin Melanoma: back ()/fup yearly Hx squamous cell carcinoma: right arm 2008 Surgical History excision of melanoma Hx of surgical amputation of finger L ring finger ground off Hysterectomy, Laproscopic (~1995) Rotator Cuff Repair (~2006) RIGHT Status post laparoscopic hysterectomy Status post rotator cuff repair Family History Mother , AGE 88 Diabetes Essential hypertension Asthma Father , AGE 66 Diabetes Renal cell cancer Sister , AGE 51 Breast cancer Sister Diabetes Essential hypertension Hyperlipidemia Asthma Breast cancer Sister Hyperlipidemia Skin cancer Sister Hyperlipidemia Breast cancer Diabetes Hypertension Sister Hyperlipidemia Asthma Hypertension Brother Diabetes Hyperlipidemia Prostate cancer Hypertension Brother Diabetes Hyperlipidemia Prostate cancer Hypertension Alcohol abuse Son Hypertension Daughter Asthma Hypertension Daughter Hypertension Sister No problems noted. Social History Smoking/Tobacco Use Status: Former Tobacco Use tobacco type: cigarettes Quit Date: 06/04/90 Tobacco: How many years used: 12 Second Hand Exposure: Yes Smoking risk assessment performed?: Yes Alcohol Intake: current Alcohol Intake frequency: a few times a week Alcohol type: wine Drug use: Never Substance use type: does not use Details: alcohol: t-2, two drinks Caregiver/Support person: No Household members: children Housing: apartment Do you need help understanding health information?: Never Pets and animals: No Sexually active: No Do you think of yourself as: straight/heterosexual Current gender identity: female What is your relationship status?: How often do you talk on the phone with friends or family?: three or more times per week Do you belong to any clubs or organized social groups?: yes Panel score (0-1 are the most socially isolated patients): 2 Telma/Pentecostalism: None Special telma needs: No Seatbelt use: sometimes Drive intox or ride w/intox auto carrier driver: No Do you feel safe at home: Yes Meds Allergies and Home Medications Allergies Allergy/AdvReac Type Severity Reaction Status Date / Time Sulfa (Sulfonamide Allergy Severe SKIN RASH Verified 06/12/22 14:50 Antibiotics) Home Medications Medication Instructions Recorded Confirmed Type [id number]-Zw-gkap-minerals 1 ea PO DAILY 01/13/13 06/12/22 History (Daily Vitamin with Iron and CA tablet) cod liver oil 1 ea PO DAILY 07/14/13 06/12/22 History glucosamine HCl 500 mg-msm 83 1 ea PO DAILY 07/14/13 06/12/22 History mg-chondroitin 400 mg tablet cholecalciferol (vitamin D3) 25 25 mcg PO DAILY 08/18/20 06/12/22 History mcg (1,000 unit) capsule levothyroxine 25 mcg tablet 25 mcg PO DAILY #90 tab-caps 05/08/22 06/12/22 Rx Exam Const General: cooperative, healthy appearing and anxious Nutritional Appearance: average body habitus Orientation: alert, awake and oriented x3 Neck Neck: normal visual inspection, no lymphadenopathy and supple Thyroid: thyroid normal Resp Effort & Inspection: normal respiratory effort and able to speak in complete sentences Auscultation: clear to auscultation bilaterally Cardio Rate: regular rate Rhythm: regular rhythm Heart Sounds: S1 normal and S2 normal GI Inspection: normal to inspection and non-distended Palpation: soft, guarding and tender in the epigastrum Percussion: normal to percussion Skin General skin exam: no rashes or lesions noted Hair: normal Nails: normal Neuro General: patient alert, patient awake and patient oriented x3 Speech: speech normal Extrem Right lower extremity: no edema Left lower extremity: no edema Results Imaging Abdomen CT scan report/results: report reviewed and image reviewed Labs Result diagrams: 06/12/22 12:42 06/12/22 12:42 Labs: Laboratory Results - last 24 hr 06/12/22 06/12/22 06/12/22 12:42 12:42 13:00 WBC 9.01 RBC 4.28 Hgb 13.2 Hct 40.4 MCV 94 MCH 30.8 MCHC 32.7 RDW 13.4 Plt Count 352 MPV 11.2 H Immature Gran % 0.4 Neutrophils % 57.1 Lymphocytes % 32.4 Monocytes % 7.0 Eosinophils % 2.0 Basophils % 1.1 Nucleated RBC % 0.0 Absolute Neutrophils 5.14 Absolute Lymphocytes 2.92 Absolute Monocytes 0.63 Absolute Eosinophils 0.18 Absolute Basophils 0.10 Sodium 140 Potassium 3.7 Chloride 102 Carbon Dioxide 31.0 Anion Gap 7.0 BUN 17 Creatinine 0.7 Est GFR (CKD-EPI 2020) 90.14 Glucose 118 H Calcium 8.7 Magnesium 2.0 Total Bilirubin 0.4 AST 27 ALT 29 Alkaline Phosphatase 93 Troponin I < 50 Total Protein 7.1 Albumin 3.4 Lipase 149 COVID-19 Source Nasopharynx SARS-CoV-2 (PCR) Negative Influenza Type A (PCR) Negative Influenza Type B (PCR) Negative RSV (PCR) Negative Last Vital Signs Pulse 67 06/12/22 15:01 Resp 15 06/12/22 13:31 BP 145/81 H 06/12/22 15:01 Pulse Ox 97 06/12/22 12:40 PAWSS Have you Been Recently Intoxicated or Drunk Within the Last 30 days?: No Have you Ever Experienced Previous Episodes of Alcohol Withdrawal?: No Have you ever Experienced Withdrawal Seizures?: No Have you ever Experienced Delirium Tremens(DT)s?: No Have you ever undergone Alcohol Rehabilitation Treatment (i.e, inpt ot outpatient treatment programs)?: No Have you ever Experienced Blackouts?: No Have you ever Combined Alcohol with other Downers within the last 90 days?: No Have you ever Combined Alcohol with any other Substance of Abuse during the last 90 days?: No Result: 0 Time Spent Time spent with Patient: 40-54 minutes Time was spent: preparing to see the patient(eg.review tests), obtaining and/or reviewing separately otained hiistory, ordering medications,tests, procedures, indepentently interpreting results and counseling the patient
[2022-06-12] MEDS: HYDROmorphone 2 MG/ML SYR 1 MG IVP ×2 (16:03→21:00)
[2022-06-12] MEDS: Lactated Ringers 1,000 ML 80 ML IV (16:03)
[2022-06-12 16:52] LABS: Troponin I < 50 ng/L (<or=60)
[2022-06-12] MEDS: Gastrografin 120 ML BTL PO (17:11)
[2022-06-12] MEDS: Heparin 5,000 UNITS/ML VIAL 5000 UNITS SC (17:11)
[2022-06-13] MEDS: HYDROmorphone 2 MG/ML SYR 1 MG IVP ×3 (03:54→23:57)
[2022-06-13] MEDS: Normal Saline Flush 10 ML SYR IVP (03:56)
[2022-06-13] MEDS: Lactated Ringers 1,000 ML 80 ML IV ×2 (04:37→17:54)
--- NOTE | 2022-06-13 05:00 | DI.RAD_ITS ---
Exam(s) XR ABDOMEN FLAT PLATE EXAM: 2D digital imaging was performed. CLINICAL HISTORY: gastrografin challenge for SBO. COMPARISON: CT CT THORAX ABD/PEL CTA from 06/12/2022 TECHNIQUE: Supine views of the abdomen performed. Two views were obtained. FINDINGS: BOWEL GAS PATTERN: Nondistended. There is contrast in the right upper quadrant which appears to be co lonic. Contrast is seen in the right lower quadrant which may be within the ileum. CALCIFICATIONS: No radiopaque calcifications. OSSEOUS STRUCTURES: Normal for age. OTHER FINDINGS: The tip of the orogastric tube is seen in the stomach. IMPRESSION: 1. Oral contrast appears to be colonic in the right upper quadrant. There is contrast seen in the ri ght lower quadrant which is likely within the ileum. 2. No significantly dilated loops of small bowel are present. DATA REPOSITORY: RADIATION DOSE DELIVERED:
[2022-06-13] MEDS: Heparin 5,000 UNITS/ML VIAL 5000 UNITS SC ×2 (06:01→17:54)
[2022-06-13] MEDS: Levothyroxine 25 MCG TAB PO (06:01)
[2022-06-13 07:00] LABS: Abs Immature Grans 0.05 10^3/uL (0.0-0.06); Absolute Basophil Count 0.06 10^3/uL (0.0-0.2); Absolute Lymphocyte Count 1.64 10^3/uL (1.2-3.4); Absolute Monocyte Count 1.13 10^3/uL (0.1-0.8); Absolute Neutrophil Count 11.02 10^3/uL (1.2-6.7); Basophils % 0.4; HCT 42.5 % (36.0-46.0); HGB 13.9 g/dL (11.2-15.7); Immature Grans % 0.4; Lymphocytes % 11.8; MCHC 32.7 % (32.0-36.0); MCV 95 fL (80-95); MPV 11.7 fL (8.0-11.0); Monocytes % 8.1; Neutrophils % 79.3; Platelet Count 362 10^3/uL (130-400); RBC 4.49 10^6/uL (3.93-5.22); RDW 13.5 % (11.7-14.6); RDW-SD 47.7 fL
[2022-06-13 07:10] LABS: Anion Gap 8.5 mmol/L (3-11); BUN 16 mg/dL (7-18); CO2 28.5 mmol/L (21.0-32.0); CREATININE 0.6 mg/dL (0.55-1.02); Calcium 8.7 mg/dL (8.5-10.1); Chloride 103 mmol/L (98-107); Estimated GFR 93.55 (mL/min/1.73m2); Glucose 103 mg/dL (74-106); Potassium 3.5 mmol/L (3.5-5.1); Sodium 140 mmol/L (136-145)
[2022-06-13 07:23] VITALS: BP 159/92; PULSE 91; RESP 16; TEMP 37; O2SAT 97
--- NOTE | 2022-06-13 07:31 | W.PM.PROGNOT ---
Date of Service Date of service: 06/13/22 Time of Service: 07:31 Assessment and Plan Assessment and plan (1) Bowel obstruction: Status: Acute Assessment and plan: NG tube on low intermittent suction; She may have ice chips and lozenges PRN. Choloraseptic spray has been ordered NPO Clamp NG tube for ambulation. Goal of 3-4+ walks/day. Pain is well controlled at this time Pain has improved. Awaiting for bowel function to return. I saw and examined Libby today and I agree with Faith Garcia's note. Her abdominal pain has improved, but moved down to her pelvis and maybe a bit towards the left side. Her nausea had resolved until the NGT was clamped for ambulation when she started to feel sick again. The Gastrografin challenge demonstrates contrast in the ascending colon. Additionally, there is resolution of some small bowel dilatation, which argues against a diagnosis of small bowel obstruction. Her abdomen is soft and no-distended. She is a little tender above the pubis. I will check a urinalysis to rule out urinary tract infection as a source of her leukocytosis. We will repeat the white blood cell count again tomorrow. If it remains elevated, start antibiotics, as this may be consistent with diverticulitis. Subjective Subjective Interval history since last seen: Patient reports that she is having lower abdominal discomfort today and throat discomfort associated with the NG tube. She is requesting to have ice chips. She denies any nausea or vomiting. Exam Const General: cooperative and comfortable Orientation: alert and oriented x3 Resp Effort & Inspection: normal respiratory effort, no audible wheezes and no cough GI Palpation: soft, guarding in the LLQ and tender in the LLQ Objective Last Vital Signs Temp 37.2 C 06/12/22 23:24 Pulse 75 06/12/22 23:24 Resp 18 06/12/22 23:24 BP 133/74 06/12/22 23:24 Pulse Ox 93 06/12/22 23:24 Laboratory Results - last 24 hr 06/12/22 06/12/22 06/12/22 12:42 12:42 13:00 WBC 9.01 RBC 4.28 Hgb 13.2 Hct 40.4 MCV 94 MCH 30.8 MCHC 32.7 RDW 13.4 Plt Count 352 MPV 11.2 H Immature Gran % 0.4 Neutrophils % 57.1 Lymphocytes % 32.4 Monocytes % 7.0 Eosinophils % 2.0 Basophils % 1.1 Nucleated RBC % 0.0 Absolute Neutrophils 5.14 Absolute Lymphocytes 2.92 Absolute Monocytes 0.63 Absolute Eosinophils 0.18 Absolute Basophils 0.10 Sodium 140 Potassium 3.7 Chloride 102 Carbon Dioxide 31.0 Anion Gap 7.0 BUN 17 Creatinine 0.7 Est GFR (CKD-EPI 2020) 90.14 Glucose 118 H Calcium 8.7 Magnesium 2.0 Total Bilirubin 0.4 AST 27 ALT 29 Alkaline Phosphatase 93 Troponin I < 50 Total Protein 7.1 Albumin 3.4 Lipase 149 COVID-19 Source Nasopharynx SARS-CoV-2 (PCR) Negative Influenza Type A (PCR) Negative Influenza Type B (PCR) Negative RSV (PCR) Negative 06/12/22 06/13/22 06/13/22 16:28 06:10 06:10 WBC 13.90 H RBC 4.49 Hgb 13.9 Hct 42.5 MCV 95 MCH 31.0 MCHC 32.7 RDW 13.5 Plt Count 362 MPV 11.7 H Immature Gran % 0.4 Neutrophils % 79.3 Lymphocytes % 11.8 Monocytes % 8.1 Eosinophils % 0.0 Basophils % 0.4 Nucleated RBC % 0.0 Absolute Neutrophils 11.02 H Absolute Lymphocytes 1.64 Absolute Monocytes 1.13 H Absolute Eosinophils 0.00 Absolute Basophils 0.06 Sodium 140 Potassium 3.5 Chloride 103 Carbon Dioxide 28.5 Anion Gap 8.5 BUN 16 Creatinine 0.6 Est GFR (CKD-EPI 2020) 93.55 Glucose 103 Calcium 8.7 Magnesium Total Bilirubin AST ALT Alkaline Phosphatase Troponin I < 50 Total Protein Albumin Lipase COVID-19 Source SARS-CoV-2 (PCR) Influenza Type A (PCR) Influenza Type B (PCR) RSV (PCR) PAWSS Have you Been Recently Intoxicated or Drunk Within the Last 30 days?: No Have you Ever Experienced Previous Episodes of Alcohol Withdrawal?: No Have you ever Experienced Withdrawal Seizures?: No Have you ever Experienced Delirium Tremens(DT)s?: No Have you ever undergone Alcohol Rehabilitation Treatment (i.e, inpt ot outpatient treatment programs)?: No Have you ever Experienced Blackouts?: No Have you ever Combined Alcohol with other Downers within the last 90 days?: No Have you ever Combined Alcohol with any other Substance of Abuse during the last 90 days?: No Result: 0 Time Spent with Patient Time Spent with Patient: <25 minutes Time was spent: preparing to see the patient(eg.review tests)
--- NOTE | 2022-06-13 08:26 | DI.VRAD_ITS ---
PROCEDURE INFORMATION: Exam: XR Abdomen Exam date and time: 06/13/2022 5:04 AM Age: 76 years old Clinical indication: Condition or disease; Patient HX: Sbo, gastrographin challenge TECHNIQUE: Imaging protocol: Radiologic exam of the abdomen. 2image(s) are provided. Views: Frontal supine view of the abdomen. 1 View. Other contrast: Oral, gastrographin, 50; COMPARISON: CT THORAX ABD/PEL CTA 06/12/2022 1:44 PM FINDINGS: Tubes, catheters and devices: The gastric tube tip overlies the gastric body level. Lungs: There is some patchy subsegmental atelectasis at the lung bases right slightly more so than left. Gastrointestinal tract: There is some large and small bowel gas present with some borderline small bowel central abdomen measuring approximally 3.8 cm. There does however appear to be some colonic contrast on the right and therefore could be seen with partial or intermittent obstructive related change. Bones/joints: No interval fracture or dislocation is appreciated. Soft tissues: There is some skin fold averaging. Other findings: No other significant interval changes are appreciated. IMPRESSION: There is some large and small bowel gas with borderline small bowel diameter for example central abdomen similar overall. There does however appear to be some colonic contrast on the right and therefore could be seen with ileus as well as partial or intermittent obstructive related change. Dictated and Authenticated by: Myron Gilliland MD. Ordering:MICH Barnard MD
[2022-06-13 10:47] VITALS: BP 145/86; PULSE 81; RESP 12; TEMP 37.7; O2SAT 88
[2022-06-13] MEDS: Ondansetron 4 MG/2 ML VIAL IVP ×2 (11:48→23:47)
[2022-06-13 11:55] VITALS: BP 158/93; PULSE 90; TEMP 37.5; O2SAT 90
[2022-06-13] MEDS: Normal Saline 50 ML 30 ML IV (12:26)
[2022-06-13 15:30] VITALS: BP 135/81; PULSE 79; RESP 19; TEMP 37.1; O2SAT 93
--- NOTE | 2022-06-13 15:48 | PHA.REVIEW2 ---
Pharmacy Admission Review - Admission Clinical Review (Last Reviewed 06/12/22 @ 16:00 by Akil Finch MD) Bowel obstruction (Acute) Sulfa (Sulfonamide Antibiotics) Allergy (Severe, Verified 06/12/22 14:50) SKIN RASH Resuscitation Status Full Code Height 5 ft 1 in Weight 68.039 kg - Renal Dosing Renal Dosing: BUN 16 mg/dL (7-18) 06/13/22 06:10 Creatinine 0.6 mg/dL (0.55-1.02) 06/13/22 06:10 Medications needing adjustments: Reviewed (eCrCl 43 ml/min) - Anticoagulation Anticoagulation: Hgb 13.9 g/dL (11.2-15.7) 06/13/22 06:10 Hct 42.5 % (36.0-46.0) 06/13/22 06:10 Plt Count 362 10^3/uL (130-400) 06/13/22 06:10 Creatinine 0.6 mg/dL (0.55-1.02) 06/13/22 06:10 DVT Prophylaxis: Reviewed Medications: Heparin - Opiate Usage Evaluate Pain Scale/Pains Meds: Reviewed Scheduled Bowel Reg ordered if on Opiates?: No (admitted for SBO) - Relevant Labs Sodium 140 mmol/L (136-145) 06/13/22 06:10 Potassium 3.5 mmol/L (3.5-5.1) 06/13/22 06:10 Chloride 103 mmol/L (98-107) 06/13/22 06:10 Magnesium 2.0 mg/dL (1.8-2.4) 06/12/22 12:42 Electrolytes, C-Reactive P, ESR: Reviewed - DM Control DM Control: Glucose 103 mg/dL (74-106) 06/13/22 06:10 DM Control: N/A - Cardiac Review Cardiac Review: Troponin I < 50 ng/L (<or=60) 06/12/22 16:28 BP, HR, EF%: Reviewed - Qtc Review QTc: Reviewed If Elevated, List meds needing intervention: QTc 426 - IV to PO Switch IV Medications: Reviewed - Home Meds Home Med List reviewed: Reviewed Relevent Home Meds Not ordered & why?: all ordered - Current meds Current Medication Order Review: Reviewed
--- NOTE | 2022-06-13 17:57 | PDOC.CMIN ---
- If Service Date Differs Date of service: 06/13/22 Time of Service: 17:57 Care Management Initial Assess REASON FOR HOSPITALIZATION:: SBO PAST MEDICAL HISTORY/PAST SURGICAL HISTORY:: All Active Problems. Bowel obstruction (Acute). Diverticulosis of colon without diverticulitis (Acute). FH: breast cancer in first degree relative (Acute). 2 sisters. Hyperlipidemia (Acute 05/01/12). diet/exci controlled. Hypothyroidism (Acute). Polyp of colon (Acute). Tubular adenoma (Acute). 08/14/11 DR. NUÑEZ; 9 TUBULAR ADENOMAS. 11/30/14; Dr. Espino. Carpal tunnel syndrome of right wrist (Acute). Trigger finger of right thumb (Acute). Repaired with carpel tunnel surgery. Medical History. Abnormal colonoscopy. pt. reports polyps. History of COVID-19. 07/13/20. Hx of ectopic . Hx of melanoma of skin. Hypothyroidism. Malignant neoplasm of skin. Melanoma: back ()/fup yearly. Hx squamous cell carcinoma: right arm 2008. Surgical History. excision of melanoma. Hx of surgical amputation of finger. L ring finger ground off. Hysterectomy, Laproscopic (~1995). Rotator Cuff Repair (~2006). RIGHT. Status post laparoscopic hysterectomy. Status post rotator cuff repair PREVIOUS FUNCTIONAL STATUS/SOCIAL/FAMILY SUPPORTS:: Libby lives in [place] in a house that her and her built, in an apartment downstairs. They gave the house to their children, and her son bought out the other children and lives in the main part of the house with his and their young child. Libby comes from a large family (9 siblings), and finds a lot of support within her family. She is independent at baseline. CURRENT FUNCTIONAL STATUS:: Libby was sitting up in bed when CM met with her. She stated that she is feeling better today, and is not in too much pain as long as she doesn't move around too much. She has an NG tube in, which she stated is very uncomfortable. She stated that she eats well and has regular bowel movements, so she is not sure how she is obstructed. She is hoping that MD can provide more information about why she has a small bowel obstruction. She shared details about her healthy eating, such as how she has cut out a lot of sugar from her diet and lost about 25 pounds over the last year. She was pleasant and very engaged in conversation. CM will continue to follow. ADVANCE DIRECTIVES:: Not on file. Has patient been provided with info about the portal/API?: Yes Did the patient sign up for the portal?: No CODE STATUS:: Full Code INSURANCE COVERAGE / FINANCIAL ISSUES:: [facility]/ [facility] health plans of [place] CURRENT HOME/COMMUNITY SERVICES/EQUIPMENT:: None PRIMARY CARE PHYSICIAN:: Lonny Nunez POTENTIAL DISCHARGE NEEDS:: Evaluations for further needs, follow up appointments. PATIENT/FAMILY EDUCATION NEEDS:: Review discharge instructions and limitations, discussion of self care needs including ask me three. ANTICIPATED BARRIERS TO DISCHARGE:: None. TRANSPORTATION:: Via private vehicle by family. PLAN:: Anticipate Libby will return home once she is medically cleared. Her family will transport her home via private vehicle. She will follow up with her PCP and discharge plan of care. CM will continue to follow.
[2022-06-13 22:53] LABS: Bilirubin Small (Negative); Blood Small (Negative); Clarity Cloudy (Clear); Glucose Negative (Negative); Ketones 40 mg/dL (Negative); Leukocyte Esterase Negative (Negative); Nitrite Negative (Negative); Specific Gravity 1.025 (1.005-1.025); Urobilinogen 0.2 EU/dL (Up TO 0.2)
[2022-06-13 22:59] LABS: Bacteria Many HPF (Negative); C & S Indicated? Yes; Crystals Many Amorphous HPF (Negative); Epithelial Cells Few HPF (Negative); Mucus Negative (Negative)
[2022-06-13 23:31] VITALS: BP 165/77; PULSE 91; RESP 16; TEMP 38.4; O2SAT 100
[2022-06-13 23:37] VITALS: TEMP 38.4
[2022-06-13] MEDS: ACETAMINOPHEN 1,000 MG/100 ML BTL 400 MG IVPB (23:37)
[2022-06-14 01:00] VITALS: TEMP 36.6
[2022-06-14 03:37] VITALS: BP 139/79; PULSE 81; RESP 16; TEMP 36.9; O2SAT 96
[2022-06-14] MEDS: Heparin 5,000 UNITS/ML VIAL 5000 UNITS SC ×2 (05:42→18:15)
[2022-06-14] MEDS: Levothyroxine 25 MCG TAB PO (05:42)
[2022-06-14] MEDS: Lactated Ringers 1,000 ML 80 ML IV (06:50)
[2022-06-14 07:01] LABS: HCT 40.1 % (36.0-46.0); HGB 13.1 g/dL (11.2-15.7); MCHC 32.7 % (32.0-36.0); MCV 95 fL (80-95); MPV 11.3 fL (8.0-11.0); Platelet Count 257 10^3/uL (130-400); RBC 4.23 10^6/uL (3.93-5.22); RDW 13.5 % (11.7-14.6); RDW-SD 47.2 fL; WBC 12.75 10^3/uL (4.4-10.8)
[2022-06-14 07:54] VITALS: BP 133/81; PULSE 79; RESP 15; TEMP 36.8; O2SAT 93
--- NOTE | 2022-06-14 08:15 | PGE_ITS ---
Date of Service Date of service: 06/14/22 Time of Service: 08:15 Assessment and Plan Assessment and plan (1) Bowel obstruction: Status: Acute Assessment and plan: NG tube output appears more bilious today. Patient is eager to have the NG tube DC'd. We perform NG tube clamping trial this morning. This will be reconnected to suction if she has any nausea or vomiting. Patient is yet to have a bowel movement, will initially trial bisacodyl suppositories however if no success we will then move to [place] enemas to promote return of GI function and bowel movement. Choloraseptic spray has been ordered NPO' She may have ice chips and lozenges PRN. Clamp NG tube for ambulation. Goal of 3-4+ walks/day. Pain is well controlled at this time Pain has improved. Awaiting for bowel function to return. We will proceed with NG tube clamping trial. I saw the patient around 10am and I agree with Faith Garcia's assesment. The patient had a small bowel movement in the intervening time. However, given the continued relatively high NGT output this AM (estimated 400mL/4 hours). Will continue NGT clamping trial and check residual. --agree with suppository/enema plan --alternate Chloroseptic and lozenge for throat irritation Subjective Subjective Interval history since last seen: Libby expresses that she is eager to be discharged home. She states that she has had some nausea, which occurs when the NG tube is being moved around she states that the irritation the back of throat causes the nausea. She expresses eagerness to have NG tube removed, however she states that she does not want this put back in. She has been ambulating frequently throughout the day. She states that she has not yet had a bowel movement. Exam Const General: cooperative, healthy appearing and comfortable Orientation: alert and oriented x3 Resp Effort & Inspection: normal respiratory effort, no audible wheezes and no cough GI Inspection: distended Palpation: soft, no guarding and tender in the LLQ Auscultation: hypoactive bowel sounds Objective Last Vital Signs Temp 36.8 C 06/14/22 07:54 Pulse 79 06/14/22 07:54 Resp 15 06/14/22 07:54 BP 133/81 06/14/22 07:54 Pulse Ox 93 06/14/22 07:54 Laboratory Results - last 24 hr 06/13/22 06/14/22 16:43 06:42 WBC 12.75 H RBC 4.23 Hgb 13.1 Hct 40.1 MCV 95 MCH 31.0 MCHC 32.7 RDW 13.5 Plt Count 257 MPV 11.3 H Urine Color Yellow Urine Clarity Cloudy Urine pH 6.0 Ur Specific [place] 1.025 Urine Protein 30 H Urine Ketones 40 H Urine Blood Small H Urine Nitrite Negative Urine Bilirubin Small H Urine Urobilinogen 0.2 Ur Leukocyte Esterase Negative Urine RBC 3-5 H Urine WBC 5-10 Ur Epithelial Cells Few Urine Crystals Many Amorphous Urine Bacteria Many Urine Mucus Negative Ur Culture Indicated? Yes Urine Glucose Negative PAWSS Have you Been Recently Intoxicated or Drunk Within the Last 30 days?: No Have you Ever Experienced Previous Episodes of Alcohol Withdrawal?: No Have you ever Experienced Withdrawal Seizures?: No Have you ever Experienced Delirium Tremens(DT)s?: No Have you ever undergone Alcohol Rehabilitation Treatment (i.e, inpt ot outpatient treatment programs)?: No Have you ever Experienced Blackouts?: No Have you ever Combined Alcohol with other Downers within the last 90 days?: No Have you ever Combined Alcohol with any other Substance of Abuse during the last 90 days?: No Result: 0 Time Spent with Patient Time Spent with Patient: <25 minutes Time was spent: preparing to see the patient(eg.review tests) and obtaining and/or reviewing separately [facility]
--- NOTE | 2022-06-14 10:08 | CMPROGNOTE_ITS ---
- If Service Date Differs Date of service: 06/14/22 Time of Service: 10:08 Care Management Progress Note S/O: Libby was sitting up in her chair when CM met with her. Her NG tube was removed, and she stated that she was given some tea to drink. Per RN, she has had two bowel movements. Libby is eager to return home, and stated that her son can come pick her up. CM reported that the MD has not made a decision about discharge at this time. She stated that she is ok with remaining overnight again, but she would like to know so she can update her family. CM will continue to follow. A: Libby is a 76 year old female admitted to [facility] on 06/12/22 with SBO. P: Anticipate Libby will return home once she is medically cleared. Her family will transport her home via private vehicle. She will follow up with her PCP and discharge plan of care. CM will continue to follow.
[2022-06-14] MEDS: Bisacodyl 10 MG SUPP PR (10:44)
--- NOTE | 2022-06-14 14:38 | CHAPLAIN ---
Libby was sitting in a nichol spot near the window when I visited. She shared a story about driving five grandchildren, from 15 to five years old, to [place] for Thanksgiving a few years ago. After her she wanted to do something different for Thanksgiving. Libby is close to her three year old grandson and is looking forward to seeing him when she is discharged.
[2022-06-14 21:00] VITALS: BP 120/70; PULSE 80; RESP 18; TEMP 37.4; O2SAT 95
[2022-06-15 00:10] VITALS: BP 122/78; PULSE 80; RESP 19; TEMP 36.5; O2SAT 93
[2022-06-15] MEDS: Levothyroxine 25 MCG TAB PO (04:44)
[2022-06-15] MEDS: Heparin 5,000 UNITS/ML VIAL 5000 UNITS SC ×2 (04:58→18:10)
[2022-06-15 07:21] VITALS: BP 131/81; PULSE 74; RESP 17; TEMP 36.6; O2SAT 96
--- NOTE | 2022-06-15 09:53 | CMPROGNOTE_ITS ---
- If Service Date Differs Date of service: 06/15/22 Time of Service: 09:53 Care Management Progress Note S/O: Libby was pacing in her room, holding her abdomen when CM met with her. She stated that she is really disappointed that her pain has returned. She had a regular breakfast this morning and then began to experience severe abdominal pain. She also had a large tarry stool. She explained that she really wants to go home. Her 3 year old grandson Moiz misses her, as does her dog. Libby shared that she was anxiously waiting to speak to the surgeon about her plan of care and anticipated discharge day. She verbalized that she knows a black stool is not good and will likely affect her discharge as will her inability to tolerate solid food. A: Libby is a 76 year old female admitted to [facility] on 06/12/22 with SBO. P: Anticipate Libby will return home once she is medically cleared. Her family will transport her home via private vehicle. She will follow up with her PCP and discharge plan of care. CM will continue to follow.
[2022-06-15] MEDS: Ketorolac 15 MG/ML VIAL IVP (10:31)
[2022-06-15] MEDS: Normal Saline Flush 10 ML SYR IVP ×2 (10:32→16:16)
[2022-06-15 10:35] VITALS: BP 152/91; PULSE 89; TEMP 37.1; O2SAT 95
[2022-06-15] MEDS: Simethicone 80 MG CHEW PO (11:44)
[2022-06-15 14:58] VITALS: BP 117/76; PULSE 86; RESP 17; TEMP 36.5; O2SAT 98
[2022-06-15 15:28] LABS: Abs Immature Grans 0.07 10^3/uL (0.0-0.06); Absolute Basophil Count 0.09 10^3/uL (0.0-0.2); Absolute Lymphocyte Count 2.09 10^3/uL (1.2-3.4); Absolute Monocyte Count 0.89 10^3/uL (0.1-0.8); Absolute Neutrophil Count 9.84 10^3/uL (1.2-6.7); Basophils % 0.7; Eosinophils % 0.8; HCT 38.1 % (36.0-46.0); HGB 12.4 g/dL (11.2-15.7); Immature Grans % 0.5; MCH 30.8 pg (27.0-33.0); MCHC 32.5 % (32.0-36.0); MCV 95 fL (80-95); MPV 11.2 fL (8.0-11.0); Monocytes % 6.8; Neutrophils % 75.2; Platelet Count 289 10^3/uL (130-400); RBC 4.03 10^6/uL (3.93-5.22); WBC 13.08 10^3/uL (4.4-10.8)
--- NOTE | 2022-06-15 15:37 | PGE_ITS ---
Date of Service Date of service: 06/15/22 Time of Service: 15:38 Assessment and Plan Assessment and plan (1) Bowel obstruction: Status: Acute Assessment and plan: This is a 76-year-old female admitted with abdominal pain and found to have a small bowel obstruction. She appeared to have resolved yesterday with a significantly diminished NGT output after a clamping trial, and the NGT was removed. She tolerated clears last night but has had in increase in discomfort today, though not nauseated. She is not obstipated, and continues to have bowel function. --change diet to full liquids --check chemistry --pt appears to be taking adequate PO, will re-evaluate restarting IV fludis (2) E. coli UTI: Status: Acute Assessment and plan: Urine culture today resulted in >100,000 colonies/HPF of E.coli with many bacteria. This may be a contributing to the picture of possible partial SBO/paralytic ileus. --awaiting susceptibility. --will start Ceftriaxone Subjective Subjective Interval history since last seen: The patient is not feeling as well today as she did last night. She started taking a regular diet this morning and has increased LUQ and suprapubic discomfort/heaviness. She continues to pass flatus and stool and admits to some burping, though denies nausea or increased pain with oral intake. She has been ambulating, though still feels bloated. She denies any dysuria. Exam Const General: cooperative, healthy appearing, comfortable and no acute distress Nutritional Appearance: average body habitus Orientation: alert, awake and oriented x3 Neck Neck: normal visual inspection and supple Resp Effort & Inspection: normal respiratory effort, able to speak in complete sentences, not labored and no nasal flaring Cardio Rate: regular rate Rhythm: regular rhythm Heart Sounds: S1 normal and S2 normal GI Palpation: soft, not firm, no guarding and tender in the LUQ and suprapubicly Percussion: tympanic to percussion Auscultation: normal bowel sounds Back/Spine/Pelvis Back: no CVA tenderness Neuro General: patient alert, patient awake, patient oriented x3, moves all extremities and no focal motor deficits Psych Mental Status: mental status grossly normal Speech and Movement: speech and movement normal Mood: congruent mood Affect: normal affect Thought Process: normal Thought Content: normal Objective Last Vital Signs Temp 97.7 F 06/15/22 14:58 Pulse 86 06/15/22 14:58 Resp 17 06/15/22 14:58 BP 117/76 06/15/22 14:58 Pulse Ox 98 06/15/22 14:58 Laboratory Results - last 24 hr 06/15/22 15:21 WBC 13.08 H RBC 4.03 Hgb 12.4 Hct 38.1 MCV 95 MCH 30.8 MCHC 32.5 RDW 13.0 Plt Count 289 MPV 11.2 H Immature Gran % 0.5 Neutrophils % 75.2 Lymphocytes % 16.0 Monocytes % 6.8 Eosinophils % 0.8 Basophils % 0.7 Nucleated RBC % 0.0 Absolute Neutrophils 9.84 H Absolute Lymphocytes 2.09 Absolute Monocytes 0.89 H Absolute Eosinophils 0.10 Absolute Basophils 0.09 Objective Narrative Objective Narrative: Urine culture resulted with >100,000 colonies of E. coli PAWSS Have you Been Recently Intoxicated or Drunk Within the Last 30 days?: No Have you Ever Experienced Previous Episodes of Alcohol Withdrawal?: No Have you ever Experienced Withdrawal Seizures?: No Have you ever Experienced Delirium Tremens(DT)s?: No Have you ever undergone Alcohol Rehabilitation Treatment (i.e, inpt ot outpatient treatment programs)?: No Have you ever Experienced Blackouts?: No Have you ever Combined Alcohol with other Downers within the last 90 days?: No Have you ever Combined Alcohol with any other Substance of Abuse during the last 90 days?: No Result: 0 Time Spent with Patient Time Spent with Patient: <25 minutes Time was spent: preparing to see the patient(eg.review tests), ordering medications,tests, procedures, referring, communicating with other health healthcare recruiter, indepentently interpreting results and counseling the patient
[2022-06-15 15:43] LABS: ALT 38 U/L (14-59); AST 42 U/L (15-37); Alkaline Phosphatase 94 U/L (46-116); Anion Gap 4.7 mmol/L (3-11); BUN 15 mg/dL (7-18); Bilirubin, Total 0.4 mg/dL (0.2-1.0); CO2 33.3 mmol/L (21.0-32.0); CREATININE 0.7 mg/dL (0.55-1.02); Calcium 8.7 mg/dL (8.5-10.1); Chloride 100 mmol/L (98-107); Estimated GFR 90.14 (mL/min/1.73m2); Glucose 148 mg/dL (74-106); Magnesium 1.8 mg/dL (1.8-2.4); Potassium 3.2 mmol/L (3.5-5.1); Sodium 138 mmol/L (136-145); Total Protein 6.6 g/dL (6.4-8.2)
[2022-06-15] MEDS: Potassium Chloride Liquid 20 MEQ PKT 40 MEQ PO (16:14)
[2022-06-15] MEDS: cefTRIAXone 1 GM/50 ML BAG IVPB (16:15)
[2022-06-15] MEDS: POTASSIUM CHLORIDE/D5-0.45NACL 1,000 ML 80 MEQ IV (22:45)
[2022-06-15 23:44] VITALS: BP 132/70; PULSE 80; RESP 14; TEMP 36.9; O2SAT 95
[2022-06-16] MEDS: Levothyroxine 25 MCG TAB PO (06:10)
[2022-06-16] MEDS: Heparin 5,000 UNITS/ML VIAL 5000 UNITS SC ×2 (06:10→17:36)
[2022-06-16 06:48] LABS: Abs Immature Grans 0.02 10^3/uL (0.0-0.06); Absolute Basophil Count 0.07 10^3/uL (0.0-0.2); Absolute Eosinophil Count 0.29 10^3/uL (0.0-0.7); Absolute Lymphocyte Count 2.03 10^3/uL (1.2-3.4); HCT 35.1 % (36.0-46.0); HGB 11.7 g/dL (11.2-15.7); Immature Grans % 0.3; Lymphocytes % 27.8; MCH 31.5 pg (27.0-33.0); MCHC 33.3 % (32.0-36.0); MCV 94 fL (80-95); MPV 11.9 fL (8.0-11.0); Monocytes % 9.6; Neutrophils % 57.3; Platelet Count 253 10^3/uL (130-400); RBC 3.72 10^6/uL (3.93-5.22); RDW 13.2 % (11.7-14.6); RDW-SD 45.9 fL; WBC 7.31 10^3/uL (4.4-10.8)
[2022-06-16 07:08] LABS: Anion Gap 3.9 mmol/L (3-11); BUN 8 mg/dL (7-18); CO2 32.1 mmol/L (21.0-32.0); CREATININE 0.6 mg/dL (0.55-1.02); Calcium 8.4 mg/dL (8.5-10.1); Chloride 106 mmol/L (98-107); Estimated GFR 93.55 (mL/min/1.73m2); Glucose 108 mg/dL (74-106); Potassium 3.6 mmol/L (3.5-5.1); Sodium 142 mmol/L (136-145)
[2022-06-16 07:20] VITALS: BP 124/83; PULSE 74; RESP 14; TEMP 36.5; O2SAT 97
--- NOTE | 2022-06-16 08:56 | PGE_ITS ---
Date of Service Date of service: 06/16/22 Time of Service: 08:06 Assessment and Plan Assessment and plan (1) Bowel obstruction: Status: Acute Assessment and plan: 76yo female with resolving symptoms of SBO/ileus. I suspect that her symptomalogy may have been more reflective of a paralytic ileus associated with the recently discovered UTI. --cont full liquids --hold IVF --no narcotics --ambulate --incentive spirometry --GI/DVT prophylaxis --await further GI function --if she continues to do well today, may discharge this evening after next antibiotic dose (2) E. coli UTI: Status: Acute Assessment and plan: --continue Ceftriaxone --awaiting susceptibility --will discharge on oral regimen Subjective Subjective Interval history since last seen: Pt is feeling much better today. She is tolerating a diet. She denies having any pain and the left upper quadrant and suprapubic tenderness/fullness that she had yesterday has resolved. She also feels that her bloating has decreased. She is passing flatus this morning but has not had a bowel movement. Exam Const General: cooperative, healthy appearing, comfortable and no acute distress Orientation: alert, awake and oriented x3 Resp Effort & Inspection: normal respiratory effort, able to speak in complete sentences and no nasal flaring Auscultation: clear to auscultation bilaterally GI Palpation: soft, not firm, no guarding, not rigid, nontender and other (exam much more benign than yesterday) Percussion: normal to percussion Neuro General: patient alert, patient awake and patient oriented x3 Cognition: normal cognition Speech: speech normal Psych Appearance: grossly normal Mental Status: mental status grossly normal Speech and Movement: speech and movement normal Affect: normal affect Attitude: cooperative Objective Last Vital Signs Temp 97.7 F 06/16/22 07:20 Pulse 74 06/16/22 07:20 Resp 14 06/16/22 07:20 BP 124/83 06/16/22 07:20 Pulse Ox 97 06/16/22 07:20 Laboratory Results - last 24 hr 06/15/22 06/15/22 06/16/22 15:21 15:21 06:10 WBC 13.08 H RBC 4.03 Hgb 12.4 Hct 38.1 MCV 95 MCH 30.8 MCHC 32.5 RDW 13.0 Plt Count 289 MPV 11.2 H Immature Gran % 0.5 Neutrophils % 75.2 Lymphocytes % 16.0 Monocytes % 6.8 Eosinophils % 0.8 Basophils % 0.7 Nucleated RBC % 0.0 Absolute Neutrophils 9.84 H Absolute Lymphocytes 2.09 Absolute Monocytes 0.89 H Absolute Eosinophils 0.10 Absolute Basophils 0.09 Sodium 138 142 Potassium 3.2 L 3.6 Chloride 100 106 Carbon Dioxide 33.3 H 32.1 H Anion Gap 4.7 3.9 BUN 15 8 Creatinine 0.7 0.6 Est GFR (CKD-EPI 2020) 90.14 93.55 Glucose 148 H 108 H Calcium 8.7 8.4 L Magnesium 1.8 2.0 Total Bilirubin 0.4 AST 42 H ALT 38 Alkaline Phosphatase 94 Total Protein 6.6 Albumin 3.0 L 06/16/22 06:10 WBC 7.31 RBC 3.72 L Hgb 11.7 Hct 35.1 L MCV 94 MCH 31.5 MCHC 33.3 RDW 13.2 Plt Count 253 MPV 11.9 H Immature Gran % 0.3 Neutrophils % 57.3 Lymphocytes % 27.8 Monocytes % 9.6 Eosinophils % 4.0 Basophils % 1.0 Nucleated RBC % 0.0 Absolute Neutrophils 4.20 Absolute Lymphocytes 2.03 Absolute Monocytes 0.70 Absolute Eosinophils 0.29 Absolute Basophils 0.07 Sodium Potassium Chloride Carbon Dioxide Anion Gap BUN Creatinine Est GFR (CKD-EPI 2020) Glucose Calcium Magnesium Total Bilirubin AST ALT Alkaline Phosphatase Total Protein Albumin PAWSS Have you Been Recently Intoxicated or Drunk Within the Last 30 days?: No Have you Ever Experienced Previous Episodes of Alcohol Withdrawal?: No Have you ever Experienced Withdrawal Seizures?: No Have you ever Experienced Delirium Tremens(DT)s?: No Have you ever undergone Alcohol Rehabilitation Treatment (i.e, inpt ot outpatient treatment programs)?: No Have you ever Experienced Blackouts?: No Have you ever Combined Alcohol with other Downers within the last 90 days?: No Have you ever Combined Alcohol with any other Substance of Abuse during the last 90 days?: No Result: 0 Time Spent with Patient Time Spent with Patient: <25 minutes Time was spent: preparing to see the patient(eg.review tests), obtaining and/or reviewing separately otained hiistory, referring, communicating with other health respiratory care specialist, indepentently interpreting results and counseling the patient
[2022-06-16 15:42] VITALS: BP 133/80; PULSE 82; RESP 18; TEMP 37; O2SAT 99
[2022-06-16] MEDS: Normal Saline Flush 10 ML SYR IVP (15:46)
[2022-06-16] MEDS: cefTRIAXone 1 GM/50 ML BAG IVPB (15:46)
--- NOTE | 2022-06-16 17:10 | PDOC.CMPRO ---
- If Service Date Differs Date of service: 06/16/22 Time of Service: 17:11 Care Management Progress Note S/O: Libby was sitting up in her chair when CM met with her today. She stated that she is feeling much better and is hoping to return home later this afternoon after her IV abx dose. She stated that she misses her grandson, and did not expect to be hospitalized for so long. She reported that she is frustrated that she doesn't know how to prevent another SBO. Libby stated that she would prefer to return home today, but is ok with staying overnight if necessary. She would like to be informed of her plan in order to tell her family. CM will continue to follow. A: Libby is a 76 year old female admitted to [facility] on 06/12/22 with SBO. P: Anticipate Libby will return home once she is medically cleared. Her family will transport her home via private vehicle. She will follow up with her PCP and discharge plan of care. CM will continue to follow.
--- NOTE | 2022-06-16 17:43 | DSE_ITS ---
Date of service: 06/16/22 Time of Service: 17:43 DS: Diagnosis Discharge Diagnosis (1) Bowel obstruction: Status: Acute Asessment and Plan: This is a 76-year-old female admitted with a clinical picture concerning for SBO. In light of the diagnosis of UTI, and improvement after initiation of treatment, her clinical course most likely represents a significant pararlytic ileus secondary to UTI. --maintain light, low residue diet for a few days following discharge --drink plenty of non-sugary clear fluids --follo-up with PMD in next 1-2 weeks (2) E. coli UTI: Status: Acute Asessment and Plan: Decreased abdominal pressure and symptoms, and normalizing of leukocytosis likely reflects adequate initiation of treatment. --continue antibiotic treatment with 3 days of nitrofurantoin every 12 hours Discharge Plan Disposition Patient Disposition: Home Condition: Good Discharge Details Reason For Visit: SBO Admit Date/Time: 06/12/22 14:18 Admit Provider: Akil Finch Attending Provider: Akil Finch Primary Care Provider: Lonny Nunez Hospital Course Hospital Course: This is a 76-year-old female who was admitted on 06/12/22 under the service of Dr. Akil Finch with concern for small bowel obstruction. Due to vomiting, an NGT was placed, and initially yielded a significant amount. A gastrograffin challenge demonstrated passage of contrast into the colon negating the diagnosis of a complete bowel obstruction. On 06/14, she underwent a NGT clamping trial, the residual was negligible, and the NGT was removed, and the patient started on clears. During this time she was havaing bowel function. On 06/15, she had an increase in LUQ and suprapubic discomfort/tenderness. Urinanalysis resulted in a E. coli UTI, and IV Ceftriaxone was initiated. On 06/16, the patient is feeling signicantly better with no nausea, no pain, decreased bloating, and continued bowel function. She feels safe and stable to go home after her afternoon dose of antibiotics, with 3 further days of oral antiibiotics at home. Home Meds and New Rx's Prescriptions: New nitrofurantoin monohyd/m-cryst 100 mg capsule 100 mg PO BID 3 Days Qty: 6 0RF Rx Instructions: must administer with a meal/food Continued cholecalciferol (vitamin D3) 25 mcg (1,000 unit) capsule 25 mcg PO DAILY Daily Vitamin with Iron and CA 1 EACH tablet 1 ea PO DAILY cod liver oil 1 EACH capsule 1 ea PO DAILY glucosamine [id number] 1 EACH tablet 1 ea PO DAILY levothyroxine 25 mcg tablet 25 mcg PO DAILY Qty: 90 3RF Discharge Instructions Instructions: Bowel Obstruction (DC), Ileus (DC), Urinary Tract Infection in Older Adults (DC) Additional Instructions: Follow up with your primary care doctor in the next 1-2 weeks Stand Alone Forms: Nursing Discharge Form Referrals: Lonny Nunez [employer] [Primary Care Provider] - (Please call Sunday to make a follow up appointment for 1-2 weeks.) Activity:: Activity as Tolerated Equipment/Supplies:: No Equipment Needed Diet:: start with low-residual; no raw vegetables, light foods; and slowly advance DS: Summary Time Spent with Patient providing and/or coordinating discharge services: Less than 30 minutes Status at Discharge Functional status at discharge: independent ambulation Overall status at discharge: patient is progressing back to baseline Mental Status: mental status grossly normal Speech and Movement: speech and movement normal Mood: congruent mood Affect: normal affect Exam Const General: cooperative, healthy appearing, comfortable and no acute distress Orientation: alert, awake and oriented x3 Resp Effort & Inspection: normal respiratory effort, able to speak in complete sentences and no nasal flaring Auscultation: clear to auscultation bilaterally GI Palpation: soft, not firm, no guarding, not rigid, nontender and other (exam much more benign than yesterday) Percussion: normal to percussion Neuro General: patient alert, patient awake and patient oriented x3 Cognition: normal cognition Speech: speech normal Psych Appearance: grossly normal Mental Status: mental status grossly normal Speech and Movement: speech and movement normal Mood: congruent mood Affect: normal affect Attitude: cooperative DS: Data Vitals/I&O Vitals and I&O: Vital Signs Temperature 98.6 F 06/16/22 15:42 Temperature Source Tympanic 06/16/22 15:42 Pulse 82 06/16/22 15:42 Pulse Rhythm Regular 06/16/22 16:43 Pulse 70 06/12/22 13:31 Respiratory Rate 18 06/16/22 15:42 Respiratory Effort Non-Labored 06/16/22 16:43 Respiratory Depth Normal 06/16/22 16:43 Respiratory Pattern Normal 06/16/22 16:43 Blood Pressure 133/80 06/16/22 15:42 Blood Pressure Mean 96 06/12/22 15:01 Blood Pressure Position Supine 06/12/22 12:34 Pulse Oximetry 99 06/16/22 15:42 Oxygen Delivery Method Room Air 06/16/22 15:42 Oxygen Flow Rate 0 06/16/22 15:42 Pain Level 0 06/16/22 11:33 Comment 06/16/22 11:33 Intake & Output 06/15/22 06/16/22 06/16/22 23:59 11:59 23:59 Intake Total 770 / 1280 1900 / 2400 500 / 2400 Balance 770 / 1280 1900 / 2400 500 / 2400 Intake: IV 50 / 80 1000 / 1000 Oral 720 / 1200 900 / 1400 500 / 1400 Other: Urine Color Yellow Urine Appearance Clear Clear Comment pt voids independently. pt denies dysuria pt voided on her own Per pt. report, multiple voids in the toilet throughout the day thus far. Stool Size Smear Stool Characteristics Brown Voiding Methods Toilet Bedside Commode Toilet Data Completed and Pending Labs on day of discharge: Labs from last 24 hours 06/16/22 06/16/22 06:10 06:10 WBC 7.31 RBC 3.72 L Hgb 11.7 Hct 35.1 L MCV 94 MCH 31.5 MCHC 33.3 RDW 13.2 Plt Count 253 MPV 11.9 H Immature Gran % 0.3 Neutrophils % 57.3 Lymphocytes % 27.8 Monocytes % 9.6 Eosinophils % 4.0 Basophils % 1.0 Nucleated RBC % 0.0 Absolute Neutrophils 4.20 Absolute Lymphocytes 2.03 Absolute Monocytes 0.70 Absolute Eosinophils 0.29 Absolute Basophils 0.07 Sodium 142 Potassium 3.6 Chloride 106 Carbon Dioxide 32.1 H Anion Gap 3.9 BUN 8 Creatinine 0.6 Est GFR (CKD-EPI 2020) 93.55 Glucose 108 H Calcium 8.4 L Magnesium 2.0 PFSH All Active Problems (Updated 06/15/22 @ 15:45 by Sandeep Esquivel MD) E. coli UTI (Acute) Bowel obstruction (Acute) Diverticulosis of colon without diverticulitis (Acute) FH: breast cancer in first degree relative (Acute) 2 sisters Hyperlipidemia (Acute 05/01/12) diet/exci controlled Hypothyroidism (Acute) Polyp of colon (Acute) Tubular adenoma (Acute) 08/14/11 DR. NUÑEZ; 9 TUBULAR ADENOMAS 11/30/14; Dr. Espino Carpal tunnel syndrome of right wrist (Acute) Trigger finger of right thumb (Acute) Repaired with carpel tunnel surgery. Medical History Abnormal colonoscopy pt. reports polyps History of COVID-19 07/13/20 Hx of ectopic Hx of melanoma of skin Hypothyroidism Malignant neoplasm of skin Melanoma: back ()/fup yearly Hx squamous cell carcinoma: right arm 2008 Surgical History excision of melanoma Hx of surgical amputation of finger L ring finger ground off Hysterectomy, Laproscopic (~1995) Rotator Cuff Repair (~2006) RIGHT Status post laparoscopic hysterectomy Status post rotator cuff repair Family History Mother , AGE 88 Diabetes Essential hypertension Asthma Father , AGE 66 Diabetes Renal cell cancer Sister , AGE 51 Breast cancer Sister Diabetes Essential hypertension Hyperlipidemia Asthma Breast cancer Sister Hyperlipidemia Skin cancer Sister Hyperlipidemia Breast cancer Diabetes Hypertension Sister Hyperlipidemia Asthma Hypertension Brother Diabetes Hyperlipidemia Prostate cancer Hypertension Brother Diabetes Hyperlipidemia Prostate cancer Hypertension Alcohol abuse Son Hypertension Daughter Asthma Hypertension Daughter Hypertension Sister No problems noted. Social History Smoking/Tobacco Use Status: Former Tobacco Use tobacco type: cigarettes Quit Date: 06/04/90 Tobacco: How many years used: 12 Second Hand Exposure: Yes Smoking risk assessment performed?: Yes Alcohol Intake: current Alcohol Intake frequency: a few times a week Alcohol type: wine Drug use: Never Substance use type: does not use Details: alcohol: t-2, two drinks Caregiver/Support person: No Household members: children Housing: apartment Do you need help understanding health information?: Never Pets and animals: No Sexually active: No Do you think of yourself as: straight/heterosexual Current gender identity: female What is your relationship status?: How often do you talk on the phone with friends or family?: three or more times per week Do you belong to any clubs or organized social groups?: yes Panel score (0-1 are the most socially isolated patients): 2 Telma/Zoroastrianism: None Special telma needs: No Seatbelt use: sometimes Drive intox or ride w/intox ambulance driver: No Do you feel safe at home: Yes Time Spent with Patient Time Spent with Patient: <45 minutes Time was spent: preparing to see the patient(eg.review tests), ordering medications,tests, procedures, referring, communicating with other health critical care technician and counseling the patient
== END 2022-06-16 19:15 | disposition home or self-care (01) | DRG 389 ==
LOC: ER 14:23 → MS 15:13
PROVIDERS: Physician Assistant; Surgery; Admitting Provider Surgery; Emergency Provider Physician Assistant; PCP Nurse Practitioner Family; Visit Provider Surgery
DX: K56.0 Paralytic ileus (principal); N39.0 Urinary tract infection, site not specified; B96.20 Unspecified Escherichia coli [E. coli] as the cause of diseases classified elsewhere; E03.9 Hypothyroidism, unspecified; K57.30 Diverticulosis of large intestine without perforation or abscess without bleeding; Z87.891 Personal history of nicotine dependence; E78.5 Hyperlipidemia, unspecified; Z86.010 Personal history of colon polyps; Z86.16 Personal history of COVID-19
CPT/HCPCS: 36415; 71275; 80048; 80053; 83690; 85027; 87077; 87637; 93005; 96374; 96375; 96376; 99222; 99232; 99238; 99285; 71045; 74018; 74174; 81003; 81015; 83735; 84484; 85025; 87086; 87186; 93010; J0131; J0696; J1170; J1644; J1885; J2270; J2405; J3490

== ENCOUNTER 2022-07-05 04:31 | Outpatient (CLI) | payer OTHER, SELFPAY ==
[2022-07-05 13:05] LABS: Calculated LDL 158 mg/dL (<100); Cholesterol 257 mg/dL (<200); HDL Cholesterol 94 mg/dL (40-60); TSH 2.97 uIU/mL (0.36-3.74); Triglyceride 29 mg/dL (<150)
== END 2022-07-05 04:32 | disposition home or self-care (01) ==
LOC: LOS 04:31
PROVIDERS: PCP Nurse Practitioner Family; Visit Provider Family Medicine
DX: G56.01 Carpal tunnel syndrome, right upper limb (principal); E78.5 Hyperlipidemia, unspecified
CPT/HCPCS: 36415; 80061; 84443

== ENCOUNTER 2022-10-25 02:20 | Outpatient (CLI) | payer OTHER, SELFPAY ==
--- NOTE | 2022-10-25 06:45 | DI.MAMMO_ITS ---
Exam(s) MAMMO SCREENING EXAM: MAMMO SCREENING CLINICAL HISTORY: screening,Z12.39. TECHNIQUE: Bilateral full field digital CC and MLO mammographic images were obtained with 3D tomosyn thesis and utilizing computer aided detection (CAD). COMPARISON: Prior mammograms were reviewed. FINDINGS: There has been no significant change in the appearance and distribution of the fibroglandular tissue. Benign secretory-type calcifications again noted in both breasts. There are no new spiculated masses nor malignant appearing microcalcification groups. There is no significant architectural distortion nor skin thickening-retraction. IMPRESSION: No radiographic evidence of malignancy. BI-RADS Category 1 - Negative Breast Density - Category B - Scattered areas of fibroglandular density Breast density Category C or D implies that the patient has dense breast tissue. Dense breast tissue can make it harder to find cancer on a mammogram. Dense breast tissue is also associated with an incr eased risk of breast cancer. This information about the result of the mammogram report was provided to the patient to raise their awareness. Use this report when you speak with the patient about their risks for breast cancer, which includes their family history. At that time, you may recommend additional screening tests (Ultrasoun d or MRI) as these tests may add significant information. A negative radiographic report should not delay biopsy if a dominant or clinically suspicious mass is present. Up to ten percent of cancers are not identified on mammography. A negative report may reinforce clinical impression. Adenosis and dense breasts may obscure an underlying neoplasm. False positive reports average 6 to 10%. Patient will receive a letter notifying them of these results.
== END 2022-10-25 02:40 ==
LOC: DI 02:22
PROVIDERS: PCP Nurse Practitioner Family; Visit Provider Nurse Practitioner Family
DX: Z12.31 Encounter for screening mammogram for malignant neoplasm of breast
CPT/HCPCS: 77063; 77067

== ENCOUNTER 2023-01-29 12:45 | Outpatient (REF) | payer OTHER, SELFPAY | END 2023-01-29 12:46 | disposition home or self-care (01) | LOC: LBN 12:45 | PROVIDERS: PCP Nurse Practitioner Family; Visit Provider Nurse Practitioner Family | DX: N39.0 Urinary tract infection, site not specified (principal) | CPT/HCPCS: 87077; 87086; 87186 ==

== ENCOUNTER 2023-06-18 16:48 | Emergency (ER) | payer OTHER, SELFPAY ==
[2023-06-18 16:53] VITALS: BP 173/92; PULSE 90; RESP 18; TEMP 36.9; O2SAT 95
--- NOTE | 2023-06-18 17:15 | DI.CT_ITS ---
Exam(s) CT HEAD CERVICAL SPINE WO EXAM: CT HEAD CERVICAL SPINE WO CLINICAL HISTORY: fall, [place], lightheaded and headache. TECHNIQUE: Imaging Protocol: Axial computed tomography images with coronal and sagittal reformatted images were created and reviewed COMPARISON: No exams were available for comparison FINDINGS: BRAIN: Evidence of previous surgery left side of the face left orbit and sinus region. There are no acute skull fractures nor fluid in the visualized paranasal sinuses. There is no evidence of intracranial hemorrhage, mass effect, or shift of midline structures. There are no extra-axial fluid collections. The ventricles are not enlarged or shifted and there is no blo od within the ventricular system nor within the basal cisterns. CERVICAL SPINE: There is no evidence of fracture nor listhesis. No significant prevertebral soft tissue swelling. There is reversal of the normal curvature. There is chronic disc space narrowing at C5-6 and C6-7 le vels. There is facet arthropathy noted at the C4-5 and C3-4 levels. There is area of lucency in the left side of the C4 vertebral body measuring approximately 0.7 x 0.6 cm by 0.9 cm cephalocaudal. Po ssible lesion. No surrounding sclerosis. However no cortex destruction. There is no significant facet joint malalignment. No significant osseous lesions evident. IMPRESSION: No acute intracranial findings on this noninfused CT scan of the brain. No evidence of cervical spine fracture, malalignment, nor acute compromise of the cervical spinal can al. Incidentally noted is a 7 x 6 x 9 mm lucent nonexpansile bone lesion in the left side of the C4 verte bral body. Correlation with any neoplastic past history recommended. Report called by myself to ER provider. RADIATION DOSE DELIVERED: 1,293.12mGy.cm Total DLP DATA REPOSITORY: All CT scans at this facility are submitted to the National Radiology Data Registry (NRDR) Dose Index Registry (DIR) with the [employer] (A[employer]). RADIATION OPTIMIZATION: All CT scans at this facility use at least one of these dose optimization te chniques: automated exposure control; mA and/or kV adjustment per patient size (includes targeted exa ms where dose is matched to clinical indication); or iterative reconstruction.
[2023-06-18] MEDS: Acetaminophen 500 MG TAB 1000 MG PO (18:00)
--- NOTE | 2023-06-18 19:07 | W.ED.GENAD ---
HPI General Stated Complaint: HeadInjury MICHAELA: 3 Date/Time Provider Initiated Documentation: 06/18/23 17:19. HPI Narrative: This 77-year-old female presents with report of trip and fall on ice at 12:00 today. Denies loss of consciousness, nausea, vomiting. States she has a headache that is been persistent. Also reports some neck pain. Denies any strength or sensation change. Denies any history of coagulopathy. Denies any chest pain, back pain, lower extremity pain, abdominal pain. Related Data Home Medications Medication Instructions Recorded Confirmed [id number]-minerals 1 ea PO DAILY 01/13/13 06/18/23 (Daily Vitamin with Iron and CA tablet) cod liver oil 1 ea PO DAILY 07/14/13 06/18/23 glucosamine HCl 500 mg-msm 83 1 ea PO DAILY 07/14/13 06/18/23 mg-chondroitin 400 mg tablet cholecalciferol (vitamin D3) 25 25 mcg PO DAILY 08/18/20 06/18/23 mcg (1,000 unit) capsule milk thistle 150 mg capsule 150 mg PO BID 01/29/23 06/18/23 nitrofurantoin 100 mg PO BID #10 caps 01/29/23 06/18/23 monohydrate/macrocrystals 100 mg capsule levothyroxine 25 mcg tablet 25 mcg PO DAILY #90 tab-caps 05/09/23 06/18/23 Previous Rx's Medication Instructions Recorded nitrofurantoin 100 mg PO BID #10 caps 01/29/23 monohydrate/macrocrystals 100 mg capsule levothyroxine 25 mcg tablet 25 mcg PO DAILY #90 tab-caps 05/09/23 Allergies Allergy/AdvReac Type Severity Reaction Status Date / Time Sulfa (Sulfonamide Allergy Severe SKIN RASH Verified 06/18/23 16:55 Antibiotics) PFSH All Active Problems (Updated 06/18/23 @ 18:39 by TAWANA Heck) Concussion (Acute) SBO (small bowel obstruction) (Acute) Diverticulosis of colon without diverticulitis (Acute) FH: breast cancer in first degree relative (Acute) 2 sisters Hyperlipidemia (Acute 05/01/12) diet/exci controlled Hypothyroidism (Acute) Polyp of colon (Acute) Tubular adenoma (Acute) 08/14/11 DR. NUÑEZ; 9 TUBULAR ADENOMAS 11/30/14; Dr. Espino Carpal tunnel syndrome of right wrist (Acute) Trigger finger of right thumb (Acute) Repaired with carpel tunnel surgery. Medical History Abnormal colonoscopy pt. reports polyps History of COVID-19 07/13/20 Hx of ectopic Hx of melanoma of skin Hypothyroidism Malignant neoplasm of skin Melanoma: back ()/fup yearly Hx squamous cell carcinoma: right arm 2008 Surgical History excision of melanoma Hx of surgical amputation of finger L ring finger ground off Hysterectomy, Laproscopic (~1995) Rotator Cuff Repair (~2006) RIGHT Status post laparoscopic hysterectomy Status post rotator cuff repair Family History Mother , AGE 88 Diabetes Essential hypertension Asthma Father , AGE 66 Diabetes Renal cell cancer Sister , AGE 51 Breast cancer Sister Diabetes Essential hypertension Hyperlipidemia Asthma Breast cancer Sister Hyperlipidemia Skin cancer Sister Hyperlipidemia Breast cancer Diabetes Hypertension Sister Hyperlipidemia Asthma Hypertension Brother Diabetes Hyperlipidemia Prostate cancer Hypertension Brother Diabetes Hyperlipidemia Prostate cancer Hypertension Alcohol abuse Son Hypertension Daughter Asthma Hypertension Daughter Hypertension Sister No problems noted. Social History Smoking/Tobacco Use Status: Former Tobacco Use tobacco type: cigarettes Quit Date: 06/04/90 Tobacco: How many years used: 12 Second Hand Exposure: Yes Smoking risk assessment performed?: Yes Alcohol Intake: current Alcohol Intake frequency: a few times a week Alcohol type: wine Drug use: Never Substance use type: does not use Details: alcohol: t-2, two drinks Caregiver/Support person: No Household members: children Housing: apartment Do you need help understanding health information?: Never Pets and animals: No Sexually active: No Do you think of yourself as: straight/heterosexual Current gender identity: female What is your relationship status?: How often do you talk on the phone with friends or family?: three or more times per week Do you belong to any clubs or organized social groups?: yes Panel score (0-1 are the most socially isolated patients): 2 Telma/Latter Day: None Special telma needs: No Seatbelt use: sometimes Drive intox or ride w/intox national dedicated truck driver: No Do you feel safe at home: Yes Course Vital Signs Vital signs: Vital Signs Temperature 36.9 C 06/18/23 16:53 Pulse 90 06/18/23 16:53 Respiratory Rate 18 06/18/23 16:53 Blood Pressure 173/92 H 06/18/23 16:53 Pulse Oximetry 95 06/18/23 16:53 Temperature 36.9 C 06/18/23 16:53 Temperature Source Temporal Artery Scan 06/18/23 16:53 Pulse 90 06/18/23 16:53 Respiratory Rate 18 06/18/23 16:53 Respiratory Effort Normal 06/18/23 17:00 Respiratory Depth Normal 06/18/23 17:00 Respiratory Pattern Normal 06/18/23 17:00 Blood Pressure 173/92 H 06/18/23 16:53 Blood Pressure Position Sitting 06/18/23 16:53 Pulse Oximetry 95 06/18/23 16:53 Oxygen Delivery Method Room Air 06/18/23 16:53 Oxygen Flow Rate 0 06/18/23 16:53 Medical Decision Making 77-year-old female presenting with headache post fall, persistent Head CT does not show evidence of acute abnormality, there is a visualized lucency on C4 which is concerning for possible malignancy but may be a benign variant, referred back to primary care physician for reassessment regarding this Patient is feeling mild improvement after Tylenol, she is requesting discharge home She is encouraged to have her blood pressure checked by her primary care physician GCS 15, strength and sensation intact distally, pupils equal round reactive to light and accommodation, small hematoma noted in the occipital region without any laceration, no hemotympanum, neurovascularly intact, ambulatory with steady gait, no tenderness to thoracic or lumbar spine, no CVA tenderness or abdominal tenderness, no bony tenderness to elbows, wrists, hips, or knees Tylenol and ibuprofen Return precautions reviewed and patient expressed understanding Quality:SDOH Health Related Social Needs: No Data to Display Discharge Plan Disposition Patient Disposition: Home Discharge Details Clinical Impression: Concussion Primary Care Provider: Lonny Nunez ED Provider: Marsha Andre Home Meds and New Rx's Prescriptions: Continued cholecalciferol (vitamin D3) 25 mcg (1,000 unit) capsule 25 mcg PO DAILY milk thistle 150 mg capsule 150 mg PO BID Rx Instructions: give with meal/snack nitrofurantoin monohyd/m-cryst 100 mg capsule 100 mg PO BID Qty: 10 0RF Rx Instructions: Take 1 tablet by mouth with food twice a day for 5 days Daily Vitamin with Iron and CA 1 EACH tablet 1 ea PO DAILY cod liver oil 1 EACH capsule 1 ea PO DAILY glucosamine [id number] 1 EACH tablet 1 ea PO DAILY levothyroxine 25 mcg tablet 25 mcg PO DAILY Qty: 90 3RF Discharge Instructions Instructions: Concussion (ED) Additional Instructions: Take Tylenol or ibuprofen as needed for pain You likely have a concussion so use caution when going from sitting to standing and moving around You may have symptoms for 5 to 7 days Do not operate a vehicle while your symptoms persist Should you develop new or worsening complaints please return immediately for reassessment follow-up with your doctor regarding lucency on c4 Referrals: Lonny Nunez INSTRUCTION DEAN [Primary Care Provider] -
[2023-06-18 19:40] VITALS: BP 120/74; PULSE 76; RESP 14; TEMP 36.7; O2SAT 98
== END 2023-06-18 19:40 | disposition home or self-care (01) ==
PROVIDERS: Emergency Provider Physician Assistant; PCP Nurse Practitioner Family
DX: S06.0XAA Concussion with loss of consciousness status unknown, initial encounter (principal); R51.9 Headache, unspecified; W00.9XXA Unspecified fall due to ice and snow, initial encounter
CPT/HCPCS: 99284; 70450; 72125; 99283

== ENCOUNTER → 2023-08-07 01:24 | Outpatient (CLI) | payer OTHER, SELFPAY ==
[2023-08-07 13:32] LABS: CREATININE 0.7 mg/dL (0.55-1.02); Estimated GFR 89.58 (mL/min/1.73m2); TSH (W/Ref FT4) 3.19 uIU/mL (0.36-3.74)
[2023-08-07] MEDS: Gadoterate meglumine 20 ML VIAL 15 ML IVP (13:36)
--- NOTE | 2023-08-07 14:00 | DI.MRI_ITS ---
Exam(s) MR CERVICAL SPINE WO/W EXAM: MR CERVICAL SPINE WO/W CLINICAL HISTORY: Bone lesion on C4,M89.9,ABNL CT TECHNIQUE: Multiplanar multisequence MRI of the cervical spine was performed. CONTRAST MATERIAL: IV Contrast: 15 ML of Dotarem contrast administered. COMPARISON: CT CT HEAD CERVICAL SPINE WO from 06/18/2023 FINDINGS: BONES: Vertebral body heights are maintained. Intervertebral disc spaces are normal. There is again s een mild reversal of the normal cervical lordosis. There is a 6 mm round well-circumscribed lesion i n the left aspect of the C4 vertebral body. This corresponds to the finding seen on the CT scan from 06/18/2023. The lesion is hyperintense on both the T1 and T2 weighted images. It shows complete sup pression on the fat-suppressed T1 weighted images and shows no enhancement following contrast adminis tration. The finding is most suggestive of a focal fatty rest/lipoma. Marrow signal is otherwise wi thin normal limits for the patient's age. CERVICAL CORD: Craniovertebral junction is unremarkable. The cervical cord is normal size and signal intensity. No lesion is present. SOFT TISSUES: Unremarkable. ENHANCEMENT: No suspicious enhancement identified. C2-3: No disc herniation or bulge is identified. No significant central spinal canal or neural forami nal stenosis. C3-4: No disc herniation or bulge is identified. There are degenerative changes of the facets on the left. No significant central spinal canal or neural foraminal stenosis C4-5: No disc herniation or bulge is identified. There are degenerative changes of the facets on the right. No significant central spinal canal or neural foraminal stenosis C5-6: No disc herniation or bulge is identified. No significant central spinal canal or neural lupe inal stenosis C6-7: No disc herniation or bulge is identified. No significant central spinal canal or neural forami nal stenosis C7-T1: No disc herniation or bulge is identified. No significant central spinal canal or neural lupe inal stenosis IMPRESSION: 1. 6 mm lesion in the left aspect of the C4 vertebral body corresponding to the CT abnormality. The finding is most suggestive of a fatty rest/lipoma. 2. Degenerative changes seen in the cervical spine without significant central spinal canal or neural foraminal stenosis. 3. Unremarkable spinal cord. DATA REPOSITORY:
== END ==
PROVIDERS: PCP Nurse Practitioner Family; Visit Provider Nurse Practitioner Family
DX: M50.021 Cervical disc disorder at C4-C5 level with myelopathy (principal); E03.9 Hypothyroidism, unspecified
CPT/HCPCS: 72156; 82565; 84443

== ENCOUNTER → 2023-11-01 02:41 | Outpatient (CLI) | payer OTHER, SELFPAY ==
--- NOTE | 2023-11-01 06:30 | DI.MAMMO_ITS ---
Exam(s) MAMMO SCREENING EXAM: MAMMO SCREENING CLINICAL HISTORY: screening, Z12.39 TECHNIQUE: Bilateral full field digital CC and MLO mammographic images were obtained with 3D tomosyn thesis and utilizing computer aided detection (CAD). COMPARISON: Available for comparison. FINDINGS: Masses/Architectural Distortion: None seen. Microcalcifications: No suspicious pleomorphic-type are seen. There are stable calcifications in both breasts. Skin Thickening/Nipple Retraction: None. IMPRESSION: 1. No significant interval change with no specific features of malignancy noted. 2. Unless there is more urgent need, screening mammography is recommended, as per [employer] guidelines. BI-RADS Category 1 - Negative Breast Density - Category B - Scattered areas of fibroglandular density Breast density category C or D implies that the patient has dense breast tissue. Dense breast tissue is very common and is not abnormal but dense breast tissue can make it harder to find cancer on a ma mmogram. Also, dense breast tissue may increase their breast cancer risk. This information about the result of the mammogram report was provided to the patient to raise their awareness. Use this report when you speak with the patient about their risks for breast cancer, which includes their family hist ory. At that time, you may recommend for more screening tests (Ultrasound or MRI) as they might be us eful based on their risk. A negative radiographic report should not delay biopsy if a dominant or clinically suspicious mass is present. Up to ten percent of cancers are not identified on mammography. A negative report may reinforce clinical impression. Adenosis and dense breasts may obscure an underlying neoplasm. False positive reports average 6 to 10%. Patient will receive a letter notifying them of these results.
== END ==
PROVIDERS: PCP Nurse Practitioner Family; Visit Provider Nurse Practitioner Family
DX: Z12.31 Encounter for screening mammogram for malignant neoplasm of breast (principal)
CPT/HCPCS: 77063; 77067

== ENCOUNTER 2024-08-06 03:42 | Outpatient (CLI) | payer MEDICARE, SELFPAY ==
[2024-08-06 12:54] LABS: Hemoglobin A1C 5.8 % (<5.7)
[2024-08-06 13:00] LABS: Calculated LDL 166 mg/dL (<100); Cholesterol 269 mg/dL (<200); HDL Cholesterol 88 mg/dL (>or=50); TSH (W/Ref FT4) 3.36 uIU/mL (0.36-3.74); Triglyceride 76 mg/dL (<150)
== END 2024-08-06 03:43 | disposition home or self-care (01) ==
LOC: LOS 03:42
PROVIDERS: PCP Nurse Practitioner Family; Visit Provider Nurse Practitioner Family
DX: E03.9 Hypothyroidism, unspecified (principal); Z13.1 Encounter for screening for diabetes mellitus; Z13.6 Encounter for screening for cardiovascular disorders
CPT/HCPCS: 36415; 80061; 83036; 84443

== ENCOUNTER 2024-11-06 02:33 | Outpatient (CLI) | payer MEDICARE, SELFPAY ==
--- NOTE | 2024-11-06 07:00 | DI.MAMMO_ITS ---
Exam(s) MAMMO SCREENING EXAM: MAMMO SCREENING CLINICAL HISTORY: screening,z12.39 TECHNIQUE: Bilateral full field digital CC and MLO mammographic images were obtained with 3D tomosyn thesis and utilizing computer aided detection (CAD). COMPARISON: Available for comparison. FINDINGS: Masses/Architectural Distortion: No suspicious masses or areas of architectural distortion are presen t. Microcalcifications: No suspicious pleomorphic-type are seen. There are stable benign type calcificat ions in both breasts. Skin Thickening/Nipple Retraction: None. IMPRESSION: 1. No significant interval change with no specific features of malignancy noted. 2. Unless there is more urgent need, screening mammography is recommended, as per [employer] guidelines. BI-RADS Category 2 - Benign Findings Breast Density - Category B - There are scattered areas of fibroglandular density. Breast density Category C or D implies that the patient has dense breast tissue. Dense breast tissue can make it harder to find cancer on a mammogram. Dense breast tissue is also associated with an incr eased risk of breast cancer. This information about the result of the mammogram report was provided to the patient to raise their awareness. Use this report when you speak with the patient about their risks for breast cancer, which includes their family history. At that time, you may recommend additional screening tests (Ultrasoun d or MRI) as these tests may add significant information. A negative radiographic report should not delay biopsy if a dominant or clinically suspicious mass is present. Up to ten percent of cancers are not identified on mammography. A negative report may reinforce clinical impression. Adenosis and dense breasts may obscure an underlying neoplasm. False positive reports average 6 to 10%. Patient will receive a letter notifying them of these results.
== END 2024-11-06 02:53 ==
LOC: DI 02:33
PROVIDERS: PCP Nurse Practitioner Family; Visit Provider Nurse Practitioner Family
DX: Z12.31 Encounter for screening mammogram for malignant neoplasm of breast (principal); R92.323 Mammographic fibroglandular density, bilateral breasts; D24.1 Benign neoplasm of right breast; D24.2 Benign neoplasm of left breast
CPT/HCPCS: 77063; 77067